=== PATIENT | female | born 1950 | race Caucasian/White ===

== ENCOUNTER 2018-07-20 21:20 | Inpatient (IN) | payer MEDICARE, BC ==
[~2018-07-20] VITALS: Ht 162.6 cm; Wt 58.5 kg
--- NOTE | 2018-07-20 21:34 | NUR ---
ED Nurse Note: FALL PRECAUTION AND ASPIRATION PRECAUTION STARTED PER ERMD ORDER.
--- NOTE | 2018-07-20 21:37 | NUR ---
ED Nurse Note: PT brought in by son from home c/o AMS, pt's son states a bystander at bank told son to take pt to hospital for "not herself." Pt A&ox1 at this time, no dysphagia or facial drooping noted, pt's son states pt is normally alert and has no hx dementia or other neurological problem except hx alcoholism. pt skin warm and dry, resp even and unlabored on RA, vss, will cont monitor. nsr on cardiac rn. ERMD at the bedside.
--- NOTE | 2018-07-20 21:37 | Emergency Room Report ---
History of Present Illness General Chief Complaint: Altered Level of Consciousness Source: Patient, Family Member Present Illness HPI This is a 68-year-old female with a history of high blood pressure but on her medication. She also has a history of alcohol abuse. She was brought in by her son for altered mental status with possible stroke. Last time he saw her normally was a week ago. 4 days ago he had a call from her banker saying that she was acting abnormal and wasn't making sense when she was talking. He thought that she may be drunk. He got a call from her today and on the phone she was not making sense. He rushed over and brought her here. Is a poor historian because her speech is very broken. It appeared that she said her symptoms started Thursday or Thursday morning. She has no focal deficit. She does have a history of frequent fall. No nausea no vomiting. No trauma. Allergies: Coded Allergies: No Known Allergies (Unverified , 07/20/18) Patient History Past Medical History: see triage record, old chart reviewed, HTN Past Surgical History: other Pertinent Family History: none Social History: Reports: smoking, alcohol use Now: No Immunizations: other Reviewed Nursing Documentation: PMH: Agreed; PSxH: Agreed Nursing Documentation-PMH Hx Hypertension: Yes Review of Systems Eye: Denies: eye pain, blurred vision ENT: Denies: ear pain, nose congestion, throat swelling Respiratory: Denies: cough, shortness of breath Cardiovascular: Denies: chest pain, palpitations Gastrointestinal: Denies: abdominal pain, diarrhea, nausea, vomiting Musculoskeletal: Denies: back pain, joint pain Skin: Denies: rash Neurological: Reports: other - Slurred speech; Denies: headache, numbness Endocrine: Denies: increased thirst, increased urine Hematologic/Lymphatic: Denies: easy bruising All Other Systems: negative except mentioned in HPI Physical Exam Vital Signs Date Time Temp Pulse Resp B/P (MAP) Pulse Ox O2 Delivery O2 Flow Rate FiO2 07/20/18 21:28 97.2 105 16 165/120 98 Room Air vitals with high blood pressure Sp02 EP Interpretation: reviewed, normal General Appearance: well appearing, no apparent distress, alert Head: normocephalic, atraumatic Eyes: bilateral eye PERRL, bilateral eye EOMI ENT: hearing grossly normal, normal pharynx Neck: full range of motion, supple, no meningismus Respiratory: chest non-tender, lungs clear, normal breath sounds Cardiovascular #1: regular rate, rhythm, no murmur Gastrointestinal: normal bowel sounds, non tender, no mass, no organomegaly, no bruit, non-distended Musculoskeletal: back normal, gait/station normal, normal range of motion Neurologic: alert, oriented x3, other - She had hard time getting her speech out. Speech is broken. Psychiatric: mood/affect normal Skin: warm/dry Medical Decision Making Diagnostic Impression: Primary Impression: CVA (cerebral vascular accident) Qualified Codes: I63.9 - Cerebral infarction, unspecified Additional Impressions: Hypertension Qualified Codes: I10 - Essential (primary) hypertension Alcohol abuse Acute hypokalemia ER Course Patient presents with dysarthria. CT shows CVA. This probably secondary to high blood pressure that's not control and noncompliance. There was questionable petechial hemorrhage in the region of the CVA. Because of this I held off aspirin. She is outside a of the time frame for TPA. She does not meet criteria. I discussed the case with Dr. Sandy who will admit. Lab Results Impression labs with hypokalemia EKG Diagnostic Results Rate: normal Rhythm: NSR ST Segments: other - PACs ASA given to the pt in ED: No Rhythm Strip Diag. Results EP Interpretation: yes Rate: 69 Rhythm: NSR, no PVC's, no ectopy Chest X-Ray Diagnostic Results Chest X-Ray Diagnostic Results : Chest X-Ray Ordered: Yes # of Views/Limited/Complete: 1 View Indication: Chest Pain EP Interpretation: Yes Interpretation: no consolidation, no effusion, no pneumothorax, no acute cardiopulmonary disease Impression: No acute disease Electronically Signed by: Cesario Stanley MD CT/MRI/US Diagnostic Results CT/MRI/US Diagnostic Results : Imaging Test Ordered: CT head Impression Read by radiologist. Hypoattenuation the left frontoparietal temporal region concerning for late acute or early subacute infarct. Question petechial hemorrhage in this region. Last Vital Signs Date Time Temp Pulse Resp B/P (MAP) Pulse Ox O2 Delivery O2 Flow Rate FiO2 07/20/18 21:28 97.2 105 16 165/120 98 Room Air Status: improved Disposition: ADMITTED INPATIENT Condition: Serious Cesario Stanley MD Jul 20, 2018 21:37
[2018-07-20 21:40] VITALS: BP 166/81
--- NOTE | 2018-07-20 21:48 | NUR ---
ED Nurse Note: PT OFF TO CT
--- NOTE | 2018-07-20 22:17 | NUR ---
ED Nurse Note: neuro check assessment done. noted pt with moderate level of aphasia, pt unable to repeat after words, pt aa&ox1, noted strength BUE +4 /BLE +5, no weakness noted at this time, will cont monitor.
[2018-07-20 22:25] LABS: BASOPHILS % (AUTO) 1.5 % (0.0-2.0); EOSINOPHILS % (AUTO) 2.6 % (0.0-3.0); HEMATOCRIT 44.7 % (37.0-47.0); HEMOGLOBIN 15.4 G/DL (12.0-16.0); LYMPHOCYTES % (AUTO) 29.6 % (20.0-45.0); MEAN CORPUSCULAR VOLUME 89 FL (80-99); NEUTROPHILS % (AUTO) 56.4 % (45.0-75.0); PLATELET COUNT 219 K/UL (150-450); RED BLOOD COUNT 5.05 M/UL (4.20-5.40); RED CELL DISTRIBUTION WIDTH 12.2 % (11.6-14.8)
[2018-07-20 22:35] LABS: ALANINE AMINOTRANSFERASE 52 U/L (12-78); ALBUMIN/GLOBULIN RATIO 0.9 (1.0-2.7); ALKALINE PHOSPHATASE 89 U/L (46-116); ANION GAP 13 mmol/L (5-15); ASPARTATE AMINO TRANSFERASE 70 U/L (15-37); BILIRUBIN,TOTAL 0.9 MG/DL (0.2-1.0); BLOOD UREA NITROGEN 12 mg/dL (7-18); CALCIUM 10.2 MG/DL (8.5-10.1); CARBON DIOXIDE 27 MMOL/L (21-32); CHLORIDE 99 MMOL/L (98-107); SODIUM 139 MMOL/L (136-145)
[2018-07-20 22:36] LABS: POTASSIUM 2.4 MMOL/L (3.5-5.1)
[2018-07-20 22:40] VITALS: BP 154/120
--- NOTE | 2018-07-20 23:40 | NUR ---
ED Nurse Note: PT TRANSFERRED TO TELE, CARE ENDORSED TO TERI MOY, ALL BELONGINGS SENT W/ PT, IV INTACT AND PATENT, RESP EVEN AND UNLABORED ON RA, NO CHANGES IN MENTAL STATUS NOR SPEECH PATTERN.
[2018-07-20 23:43] VITALS: BP 155/65
--- NOTE | 2018-07-20 23:43 | NUR ---
NURSE NOTES: Pt was brought in from ER with admitting diagnosis of CVA. Pt was received from Jaylyn WILLIAMSON from ED. Pt arrived on gurney with potline monitor on with no acute signs of respiratory or cardiac distress noted. Pt is saturating well (98%) on room air. Pt is alert and oriented times 1 as she is able to respond to her name. Pt eyes open spontaneously to name and is able to follow simple commands. Safety protocol initiated such as Bed is in lowest position, call light is within easy reach, side rails up times 2. bed alarm active. Received orders from MD Sandy. Will initiate plan of care.
[2018-07-21 04:00] VITALS: BP 128/67
[2018-07-21 05:19] LABS: BASOPHILS % (AUTO) 1.4 % (0.0-2.0); HEMATOCRIT 42.9 % (37.0-47.0); HEMOGLOBIN 14.4 G/DL (12.0-16.0); LYMPHOCYTES % (AUTO) 24.4 % (20.0-45.0); MEAN CORPUSCULAR VOLUME 90 FL (80-99); MONOCYTES % (AUTO) 10.6 % (1.0-10.0); NEUTROPHILS % (AUTO) 60.5 % (45.0-75.0); PLATELET COUNT 177 K/UL (150-450); RED BLOOD COUNT 4.79 M/UL (4.20-5.40); RED CELL DISTRIBUTION WIDTH 12.6 % (11.6-14.8); WHITE BLOOD COUNT 7.5 K/UL (4.8-10.8)
[2018-07-21 05:41] LABS: INR 1.1 (0.9-1.1)
[2018-07-21 05:51] LABS: ALANINE AMINOTRANSFERASE 48 U/L (12-78); ALBUMIN 3.4 G/DL (3.4-5.0); ALBUMIN/GLOBULIN RATIO 0.9 (1.0-2.7); ALKALINE PHOSPHATASE 70 U/L (46-116); ANION GAP 8 mmol/L (5-15); ASPARTATE AMINO TRANSFERASE 63 U/L (15-37); BILIRUBIN,TOTAL 0.9 MG/DL (0.2-1.0); BLOOD UREA NITROGEN 10 mg/dL (7-18); CALCIUM 9.5 MG/DL (8.5-10.1); CARBON DIOXIDE 28 MMOL/L (21-32); CHLORIDE 103 MMOL/L (98-107); CREATININE 0.8 MG/DL (0.55-1.30); POTASSIUM 2.9 MMOL/L (3.5-5.1); SODIUM 139 MMOL/L (136-145)
[2018-07-21 06:05] VITALS: BP 134/77
--- NOTE | 2018-07-21 06:18 | NUR ---
HAND-OFF: Report given to Cathy WILLIAMSON TELE.
--- NOTE | 2018-07-21 06:27 | NUR ---
NURSE NOTES: Left a message for MD Hill reporting Potassium 2.9. Awaiting further orders. will evelin out taqueria Morgan RN, receiving nurse.
--- NOTE | 2018-07-21 06:46 | NUR ---
NURSE NOTES: RECEIVED PATIENT FROM COMPA. PATIENT ALERT AND ORIENTED X1, SR ON A MONITOR. FALL AND ASPIRATION PRECAUTIONS IN PLACE: CALL LIGHT AND BEDSIDE TABLE WITHIN REACH, BED IN LOW POSITION AND BED ALARM ON; HOB ELEVATED 30 DEGREES. WILL CONTINUE WITH PLAN OF CARE.
--- NOTE | 2018-07-21 07:25 | NUR ---
HAND-OFF: Report given to Fabrice PEREZ RN PATIENT ASLEEP, NO SIGNS OF DISTRESS NOTED.
[2018-07-21 07:39] VITALS: BP 152/84
--- NOTE | 2018-07-21 08:45 | NUR ---
CASE MANAGEMENT:REVIEW 68 YR OLD FEMALE PRESENTED TO ER BY SON CC: ALOC SINCE THURSDAY SI: CVA. ACUTE HYPOKALEMIA. ETOH ABUSE 97.1 105 16 165/120 98% ON RA K-2.4 IS: IV KCL K-DUR 60MEQ PO 500CC NS BOLUS CT HEAD CHEST XRAY : TO TELEMETRY INTERQUAL CRITERIA MET
[2018-07-21] MEDS ORDERED: Sodium Chloride for KCL Premix X 4hrs IV SCH ×2 (09:30→10:00)
--- NOTE | 2018-07-21 09:48 | NUR ---
NURSE NOTES: pt awake alert, no distress. no sob. son at bedside. call light within reach. pt aware of pending swallow video. Dr Seth made aware via phone that re pt k level and pt npo and no ivf. Dr Sandy aware also
--- NOTE | 2018-07-21 10:27 | Diagnostic Imaging Report ---
Indications: Altered mental status Technique: Spiral acquisitions obtained through the brain. Angled axial and coronal 5 x 5 mm slices were reconstructed. Total dose length product 1369.05 mGycm. CTDI vol(s) 70.38 mGy. Dose reduction achieved using automated exposure control Comparison: None. Findings: There is an area of cytotoxic edema involving the left temporal lobe and parietal operculum. There is local mass effect manifested by effacement of the adjacent sulci. 8 equivocal slight peripheral hyperattenuation is probably just normal parenchyma outlined by the edematous parenchyma, but petechial hemorrhage not completely excludable. Old encephalomalacia is seen in the right occipital lobe. No acute intracranial hemorrhage. Normal size for age ventricles and extra axial CSF spaces. The remainder the murphy-white differentiation is normal. The calvarium is intact. There is right-sided mastoid opacification. The visualized orbits and sinuses are unremarkable Impression: Findings consistent with subacute left temporal and parietal infarct, in a left middle cerebral artery branch distribution. This results in mild local mass effect. Doubt but cannot exclude some petechial peripheral hemorrhage Old right occipital infarct Negative for acute intracranial bleed elsewhere Right mastoid disease This agrees with the preliminary interpretation provided overnight by [facility] teleradiology service. The CT scanner at [facility] is accredited by the [employer] and the scans are performed using protocols designed to limit radiation exposure to as low as reasonably achievable to attain images of sufficient resolution adequate for diagnostic evaluation.
--- NOTE | 2018-07-21 10:28 | Diagnostic Imaging Report ---
Indication: Chest pain Technique: One view of the chest Comparison: none Findings: The heart is upper limits normal size. The aorta is tortuous and calcified. The lungs and pleural spaces are clear Impression: No acute process
--- NOTE | 2018-07-21 11:12 | NUR ---
NURSE NOTES: rn called Dr Goodrich re neuro consult per md he will come by later in the day
[2018-07-21 12:00] VITALS: BP 142/77
--- NOTE | 2018-07-21 14:58 | NUR ---
ST NOTE: BEDSIDE SWALLOW EVAL RECEIVED BEDSIDE SWALLOW EVAL ORDER CHART REVIEWED PRIOR THE EVALUATION REFERRED BY , DR. PEMBERTON. PT IS A 68-YEAR-OLD FEMALE WHO WAS ADMITTED FOR ACUTE CVA. PER PT AND PT'S SON, PT'S SPEECH BEGAN HAVING SLURRED SPEECH AND INCREASED DIFFICULTY IN EXPRESSING HERSELF SINCE LAST THURSDAY. [id number] WAS NOTIFIED THAT PT WAS HAVING DIFFICULTY IN SPEECH AND HARD TO UNDERSTAND FROM THE BANKER. PER SON, CALLED PT LAST NIGHT AND WAS UNABLE TO UNDERSTAND PT AND BROUGHT PT IN THE ER FOR FURTHER ASSESSMENT. UPON ARRIVAL AT ER, PER ER MD, PT PRESENTS WITH DYSARTHRIA AND CT SHOWED CVA. CURRENTLY, NO CXR IS AVAILABLE AT THIS TIME. PER CT HEAD: Findings consistent with subacute left temporal and parietal infarct, in a left middle cerebral artery branch distribution. This results in mild local mass effect. Doubt but cannot exclude some petechial peripheral hemorrhage. Old right occipital infarct Negative for acute intracranial bleed elsewhere Right mastoid disease PER PT'S SON, PT HAS HISTORY OF ALCOHOL ABUSE(ABOUT 3 YEARS), AND PT HAD FREQUENT FALLS. PER SON, PT ALSO IS A SMOKER(?HOW MANY PER DAY AND HOW LONG) AND HAS A CHRONIC COUGH WHICH RELATED TO SMOKING. PT LIVES BY HERSELF INDEPENDENTLY; AND EATING REGULAR FOOD WITH THIN LIQUIDS WITHOUT SWALLOWING DIFFICULTY. CURRENT STATUS: PT SEEN AT BEDSIDE IN AM. ALERT, COOPERATIVE, ABLE TO FOLLOW DIRECTIONS. PT INCREASED DIFFICULTY IN EXPRESSING HERSELF(WORD-FINDING DIFFICULTY), AND IN PT'S SENTENCES, MISSING SUBJECT OR VERBS WAS ALSO NOTED. ORAL MOTOR EXAMINATION WAS COMPLETED PRIOR ANY PO TRIALS. MISSING SOME TEETH. FUNCTIONAL LABIAL MOVEMENT AND STRENGTH, WHEN ASKED PT TO MOVE HER TONGUE LATERALLY, PT WAS UNABLE TO COMPLETE THE TASK VOLUNTARILY, BUT ABLE TO MOVE ON THE BOTH SIDES INVOLUNTARILY, QUESTIONABLE IT RELATED TO ORAL APRAXIA OR RECEPTIVE LANGUAGE DEFICITS. WILL FOLLOW UP WITH SPEECH/LANGUAGE/COGNITION EVAL TO FULLY ASSESS PT'S SPEECH/LANGUAGE/COGNITIONS. ICE-CHIPS AND THIN LIQUID WERE ONLY GIVEN DURING THE PO INTAKE. WHEN PT TOOK THE BOLUS IN THE MOUTH, IT REQUIRED 3 TO 4 SECONDS ORAL TRANSIT TIME TO REACH THE HYOID BONE ELEVATING (LARYNGEAL ELEVATION), NO OVERT S/S OF ASPIRATION. HOWEVER, PT EXPRESSED THAT MODIFIED THE FOOD CONSISTENCIES IN LAST COUPLE DAYS. GIVEN PT HAS SUBACUTE/RECENT CVA, PT HAS RISK FOR SILENT ASPIRATION. RECOMMENDATIONS: 1. MODIFIED BARIUM SWALLOW STUDY TO OBJECTIVELY ASSESS PT'S SWALLOWING FUNCTION AND R/O SILENT ASPIRATION RISK. D/W PT, PT'S SON AND [id number] AND THE STAFF
[2018-07-21] MEDS ORDERED: Guaifenesin/DM 10ml syrup ORAL PRN (15:02)
--- NOTE | 2018-07-21 15:18 | NUR ---
ST NOTE: MODIFIED BARIUM SWALLOW STUDY(MBSS) COMPLETED MODIFIED BARIUM SWALLOW STUDY FULL REPORT WILL FOLLOW UNDER ST NOTE IN CARE ACTIVITY. RADIOLOGIST WAS NOTIFIED PRIOR THE MBSS. PT ALERT, COOPERATIVE, FOLLOWS DIRECTIONS; AND SITTING IN THE CHAIR IN THE UPRIGHT POSITION. ACCOMPANIED BY PT'S SON AND [id number]. GIVEN PO TRIALS: THIN(TSPX2 AND EQR-MLSU-[id number]-LARGE SIPS), NECTAR THICK(TSP/[id number]-NOLXSIUCZT-LARGE SIPS), PUDDING(TSP) AND 1/2 SALTINE CRACKER WITH 3CC PUDDING). IMPRESSION: DURING ORAL PHASE, THERE IS NO LABIAL ESCAPE WAS NOTED, GOOD LINGUAL CONTROL DURING BOLUS HOLD, SLOW BUT EFFICIENT MASTICATING AND MASHING DURING MASTICATED SOLID TRIAL. GOOD ORAL TRANSIT TIME(2 TO 3 SECONDS), TRACE ORAL RESIDUE BUT FUNCTIONAL. BOLUS HEADED AT THE BASE OF RAMUS OR VALLECULAE DURING INITIATING OF PHARYNGEAL SWALLOW. DURING PHARYNGEAL PHASE, POSSIBLE TRACE LARYNGEAL PENETRATION, ABOVE THE VOCAL FOLDS, WITH THIN DURING CUP SEQUENTIAL, BUT EJECTED SECONDARY TO LATE CLOSURE OF LARYNGEAL VESTIBULE. OTHERWISE, FUNCTIONAL LARYNGEAL ELEVATION, HYOID EXCURSION AND EPIGLOTTIC MOVEMENT. TRACE PHARYNGAL RESIDUE WITHIN PHARYNGEAL STRUCTURE(ARYEPIGLOTTIC FOLDS AND PYRIFORM SINUSES). ESOPHAGEAL PHASE SEEMS FUNCTIONAL, NO RETENTION WAS NOTED ON LATERAL VIEW AFTER ONE MINUTE. OVERALL, NO ASPIRATION WAS NOTED WITH ALL CONSISTENCIES; AND PT'S SWALLOWING IS FUNCTIONAL. RECOMMENDATIONS: 1. SLOWLY RESUME REGULAR WITH THIN LIQUIDS DIET. 2. GENERAL ASPIRATION PRECAUTIONS. 3. SPEECH/LANGUAGE/COGNITION EVAL AND TX. D/W PT AND FAMILY AND INFORMED ELMO WILLIAMSON.
--- NOTE | 2018-07-21 15:22 | Consultation ---
Consult Note Consult Note asked to eval at the request of Dr adams, BP and fluid and electrolyte management. This is a 68-year-old female with a history of high blood pressure but on her medication. She also has a history of alcohol abuse. She was brought in by her son for altered mental status with possible stroke. Last time he saw her normally was a week ago. 4 days ago he had a call from her banker saying that she was acting abnormal and wasn't making sense when she was talking. He thought that she may be drunk. He got a call from her today and on the phone she was not making sense. He rushed over and brought her here. Is a poor historian because her speech is very broken. It appeared that she said her symptoms started Thursday or Thursday morning. She has no focal deficit. She does have a history of frequent fall. No nausea no vomiting. No trauma. No Known Allergies (Unverified , 07/20/18) Hx Hypertension: Yes son present interviewed data reviewed claims to have had diarrhea !? Assessment/Plan Hypertension Alcohol abuse Acute hypokalemia CVA (cerebral vascular accident) CT Impression: Findings consistent with subacute left temporal and parietal infarct, in a left middle cerebral artery branch distribution. This results in mild local mass effect. Old right occipital infarct Negative for acute intracranial bleed elsewhere Right mastoid disease Plan: BP Meds Folic acid- Thiamine neuro eval K supplement UA per orders Olvin Seth MD Jul 21, 2018 15:22
[2018-07-21] MEDS: Thiamine HCl 100 MG in D5W 55 ML IVPB SCH (16:30)
[2018-07-21] MEDS: Docusate 100mg cap ORAL SCH (17:02)
[2018-07-21 18:03] VITALS: BP 160/88
[2018-07-21] MEDS ORDERED: Gadavist 7.5mMol/7.5ml vial IV PRN (18:45)
--- NOTE | 2018-07-21 19:13 | NUR ---
HAND-OFF: Report given to TERI ESPARZA.
--- NOTE | 2018-07-21 19:20 | NUR ---
NURSE NOTES: Reviewed new order from Nadja Goodrich MD. regarding stat order for MRI of neck with contrast. Called and left message
--- NOTE | 2018-07-21 19:25 | NUR ---
NURSE NOTES: NURSE NOTES: Received call back from Nadja Goodrich MD. New orders for Ativan 1mg IV X1 prior to procedure to be given.
--- NOTE | 2018-07-21 19:30 | NUR ---
NURSE NOTES: Called and spoke with Louis (Son) regarding consent for contrast administration. Obtained thru phone with Carrie Watson RN as 2nd Nurse to witness. Consent obtained.
--- NOTE | 2018-07-21 19:50 | NUR ---
NURSE NOTES: Spoke with patient regarding oncoming procedure, and Ativan administration prior. Patient refused to take medication and procedure. Explained risks and benefits but still refused. Will call MD for any further orders. ANAYELI, lamination technician from Radiology/CT aware of patients status, and is awaiting further orders.
[2018-07-21 20:00] VITALS: BP 164/88
--- NOTE | 2018-07-21 20:30 | NUR ---
NURSE NOTES: Spoke again with Louis (Son) regarding patients refusal to take medication and procedure to be done now. Stated that "I will call and talk to my mom, and ask whats going on". Will continue to monitor
--- NOTE | 2018-07-21 20:45 | NUR ---
NURSE NOTES: Spoke to Najda Goodrich RN. regarding patients refusal for both medication and procedure. New orders given to DC both MRI procedure and instead, replace with CTA neck and head (with contrast for both). Orders received and carried out. Son aware and notified. Will endorse to oncoming shift and will call Radiology dept in the morning to confirm. Continue plan of care.
[2018-07-21] MEDS ORDERED: LORazepam Inj 2mg/ml 1ml IV SCH (21:00)
[2018-07-21] MEDS ORDERED: Isovue-370 150ml vial INJ PRN ×2 (23:15)
[2018-07-22] VITALS: BP 161/91
[2018-07-22 04:00] VITALS: BP 175/86
--- NOTE | 2018-07-22 06:50 | NUR ---
NURSE NOTES: Spoke with Rubens from Radiology regarding CTA order. Will implement procedure after CT machines are in working condition.
--- NOTE | 2018-07-22 07:45 | NUR ---
NURSE NOTES: Received report from Mir WILLIAMSON. AO X2. Pt sitting in bed and eating breakfast. No c/o pain. No signs of distress noted. IV site L hand SL patent, intact. Urine sample bottle given to pt for the test. Bed in lowest position and locked. Neck CTA with contrast scheduled today and consent in the chart. Will continue to plan of care.
--- NOTE | 2018-07-22 07:45 | NUR ---
HAND-OFF: Report given to Rian Toledo RN. Patient in stable condition, endorsed plan of care.
[2018-07-22 08:00] VITALS: BP 155/90
[2018-07-22] MEDS ORDERED: HydrALAZINE 25mg tab ORAL PRN (09:00)
[2018-07-22] MEDS: Docusate 100mg cap ORAL SCH ×3 (09:31→17:41)
[2018-07-22] MEDS: Aspirin EC 325mg tab ORAL SCH (09:32)
[2018-07-22 09:37] LABS: BASOPHILS % (AUTO) 1.2 % (0.0-2.0); EOSINOPHILS % (AUTO) 2.3 % (0.0-3.0); HEMATOCRIT 45.1 % (37.0-47.0); HEMOGLOBIN 15.1 G/DL (12.0-16.0); LYMPHOCYTES % (AUTO) 18.9 % (20.0-45.0); MEAN CORPUSCULAR VOLUME 91 FL (80-99); MONOCYTES % (AUTO) 12.2 % (1.0-10.0); NEUTROPHILS % (AUTO) 65.3 % (45.0-75.0); PLATELET COUNT 203 K/UL (150-450); RED BLOOD COUNT 4.97 M/UL (4.20-5.40); RED CELL DISTRIBUTION WIDTH 12.5 % (11.6-14.8); WHITE BLOOD COUNT 7.9 K/UL (4.8-10.8)
[2018-07-22 10:17] LABS: ANION GAP 11 mmol/L (5-15); BLOOD UREA NITROGEN 8 mg/dL (7-18); CALCIUM 9.6 MG/DL (8.5-10.1); CARBON DIOXIDE 26 MMOL/L (21-32); CHLORIDE 102 MMOL/L (98-107); CREATININE 0.9 MG/DL (0.55-1.30); POTASSIUM 3.5 MMOL/L (3.5-5.1); SODIUM 139 MMOL/L (136-145)
[2018-07-22 10:30] LABS: ALANINE AMINOTRANSFERASE 54 U/L (12-78); ALBUMIN 3.5 G/DL (3.4-5.0); ALBUMIN/GLOBULIN RATIO 0.9 (1.0-2.7); ALKALINE PHOSPHATASE 76 U/L (46-116); ASPARTATE AMINO TRANSFERASE 69 U/L (15-37); BILIRUBIN,TOTAL 0.7 MG/DL (0.2-1.0); PHOSPHORUS 2.7 MG/DL (2.5-4.9)
--- NOTE | 2018-07-22 10:45 | History and Physical Report ---
DATE OF ADMISSION: 07/20/2018 HISTORY OF PRESENT ILLNESS: The patient admitted for CVA. It has been going on for three to four days, presented with focal aphasia, noncompliant with BP medications. CT showed subacute infarct in left frontal parietotemporal region and also admitted for hypokalemia. The patient has been having garbled speech for the past four to five days. She could not find words. According to her son, the patient has a fluency problem at this time. Also, has history of alcohol abuse and alcohol abuse is active according to her son. PAST MEDICAL HISTORY: Alcohol abuse, hypertension, and GERD. PAST SURGICAL HISTORY: Left ankle surgery and eye surgery. SOCIAL HISTORY: History of smoking. History of alcohol abuse. ALLERGIES: No known allergies. MEDICATIONS: Unable to tell the name of the medication she takes at this point. FAMILY HISTORY: She does have history of diabetes and hypertension in the family. REVIEW OF SYSTEMS: HEENT: Denies headaches. RESPIRATORY: Does have garbled, non-verbal speech for the four to five days. GASTROINTESTINAL: Denies nausea, vomiting, or diarrhea. CARDIOVASCULAR: Denies chest pain or orthopnea. EXTREMITIES: Denies any pain. CENTRAL NERVOUS SYSTEM: Does have change in the speech pattern for the past four to five days. Denies headache. Denies dizziness or syncope. PHYSICAL EXAMINATION: VITAL SIGNS: Temperature 98.2, pulse is 65, blood pressure 140/77. HEENT: PERRLA. NECK: Supple. No lymphadenopathy. CHEST: Clear to auscultation. CARDIOVASCULAR: Regular rate and rhythm. No murmurs or extra sounds. GASTROINTESTINAL: Soft, nontender, and nondistended. EXTREMITIES: Has 1+ edema. Reflexes equal in both sides. Does have non-verbal speech. NEUROLOGIC: No motor deficit. LABORATORY DATA: WBC of 11, hemoglobin 15.4, platelets 219. Sodium 139, potassium 2.4, BUN of 12, creatinine 1, and glucose 130. ASSESSMENT AND PLAN: Rule out acute . CAT scan shows subacute stroke and also severe low potassium, admitted for those reasons. We will consult Dr. Sen and Dr. Seth. The patient also PT, OT post stroke. Cosme Sandy M.D. DR: ANH JOB#: [id number] CC:
[2018-07-22 11:29] LABS: APPEARANCE,URINE SLIGHTLY CLOUDY; BILIRUBIN, URINE NEGATIVE (NEGATIVE); GLUCOSE, URINE (UA) NEGATIVE (NEGATIVE); KETONES,URINE NEGATIVE (NEGATIVE); LEUKOCYTE ESTERASE ,URINE 3+ (NEGATIVE); NITRITE,URINE POSITIVE (NEGATIVE); PH,URINE 7 (4.5-8.0); PROTEIN,URINE NEGATIVE (NEGATIVE); UROBILINOGEN,URINE NORMAL MG/DL (0.0-1.0)
[2018-07-22 11:30] LABS: COLOR,URINE YELLOW
[2018-07-22 12:00] VITALS: BP 142/76
--- NOTE | 2018-07-22 12:00 | Consultation ---
DATE OF CONSULTATION: CONSULTING PHYSICIAN: Higinio Goodrich M.D. This is probably the first [facility] admission for this 68-year-old right-handed white woman, chronic alcoholic, hypertension for years untreated, probable COPD, smoker for many years and continues to smoke, possibly with hyperlipidemia, who is admitted with a chief complaint of confusion or aphasia. HISTORY OF PRESENT ILLNESS: About 3 to 4 weeks ago, the patient apparently had trouble speaking for a few seconds and this however disappeared. The patient seen by her son about 4 days ago. She was in a bank and acting abnormally. The patient today got a phone call from her son and felt she was confused and then brought her to this hospital. EKG revealed left ventricular hypertrophy with repolarization abnormality. Cannot rule out septal infarct, age undetermined. There is sinus rhythm with premature atrial complexes noted. The patient's chest x-ray yesterday revealed the heart was in the upper limits of normal. She had a torturous and calcified aorta. However, the lungs were clear. The patient had a CT scan of the brain, which revealed a left frontal parietal operculum hypodensity involving the cortex as well as the subcortical white matter with local mass effect with effacement of the adjacent sulci, petechial hemorrhages, not completely excluded. There is also an old encephalomalacia seen in the right occipital lobe. There is some right mastoid opacification. The findings were consistent with subacute left temporoparietal infarct. Basal ganglia were not involved. The patient's chemistries yesterday revealed a low potassium of 2.4, glucose of 130, calcium 10.2, which was minimally elevated. Her AST was 70. Total protein was 8.3. Liver functions were normal. Today the potassium was 2.9. CBC was normal yesterday except for a white count of 11,000, which is now 7500, platelet count was 219,000. The PT and PTT and INR were normal. The patient was admitted with an acute stroke. The patient is placed on telemetry. She has actually improved . There is no history of chest pain or shortness of breath. Probably no history of palpitations. She has no visual changes. No diplopia. There is no loss of smell or taste, hearing loss or tinnitus or dizzy spell. There is no neck or back pain. There is no muscle weakness or gait disorder or numbness or tingling. She denies any headache or migraine. The patient did smoke at least 20 cigarettes a day for years. She denies any history of thyroid disease or cancer. She denies any history of heart disease including heart failure, myocardial infarctions. She has, however, had poor dentition but never goes to a dentist. She does not exercise and is obese. Her alcohol abuse started about 5 years ago. She did have alcohol withdrawal with tremor, but no delirium tremors and no seizures. No history of facial weakness, dysarthria, or dysphagia. There is no family history of neurologic disease. PAST MEDICAL HISTORY/PAST MEDICAL ILLNESSES: 1. Eczema. 2. Hypertension. 3. Hyperkalemia. SOCIAL HISTORY: She is and has 3 children in good health. ALLERGIES: There are no drug allergies. SURGERIES: In 1991, she shattered her left ankle and had a sean and pin placed. She had 2 regular pregnancies. MEDICATION: She is only on a steroid cream, but no medicines for hypertension. REVIEW OF SYSTEMS: Her appetite is good. Her weight is stable as far as we can tell. PHYSICAL EXAMINATION: GENERAL: She is a well-developed, obese woman, lying in bed, in no acute distress. VITAL SIGNS: Blood pressure is 166/88, pulse is 78 and regular, respiration is 19. HEENT: Examination of head, ears, eyes, nose, mouth and throat reveals poor dentition. NECK: Supple. There is no tenderness. Carotids are +2. No bruits could be appreciated. LUNGS: Clear to auscultation. CARDIOVASCULAR: PMI was not felt. JVP was flat. The patient had normal S1, S2 physiologically split. There was a questionable S4 at the apex and left sternal border. ABDOMEN: Obese. Bowel sounds are intact. There is no tenderness, masses, or organomegaly. BACK: There is no tenderness to percussion or muscle spasm. EXTREMITIES: Peripheral pulses are +2 in the upper and the dorsalis pedis pulses are felt in lower extremities. There is no edema or erythema. NEUROLOGIC: Mental status, she is alert and awake. She is oriented to person, knows her name. Her language function, her speech is nonfluent with paraphasic errors. Comprehension is impaired. Repetition is impaired. Reading and writing not tested. She had some right left confusion and finger agnosia and calculating 2+3, she is unable to score "5." CRANIAL NERVE EXAMINATION: CRANIAL NERVE II: Visual almonte are probably intact to confrontation. Fundi were not well visualized. CRANIAL NERVE III, IV, AND : Extraocular motility was full. Pupils are equal, round, reactive to light at 7 mm. CRANIAL NERVE V: Facial and corneal sensation were intact to fine touch and pinprick. Pterygoid strength 5/5. CRANIAL NERVE VII: Facial strength appeared to be symmetrical bilaterally. CRANIAL NERVE VIII: Auditory acuity is slightly decreased to loud whisper. CRANIAL NERVE IX AND X: Gag was intact bilaterally. CRANIAL NERVE XI: Sternocleidomastoid strength 5/5. CRANIAL NERVE XII: Tongue protrudes in the midline without fasciculations or atrophy. MUSCULOSKELETAL: Muscle bulk and tone are normal. Strength 5/5 proximally and distally without pronator drift. Reflexes are trace in the upper extremities, +1 at the knees and at the ankles with downgoing toes and testing for Babinski response. Coordination, bzfnzy-ld-iduc, ytfe-po-exob testing, rapid alternating movements were intact. She has a normal based gait. Romberg is negative. Tandem walking was done, heel and toe walk were decreased. Heel walk was a little worse than the toe walk. Sensory examination to pinprick and fine touch were grossly intact as well as proprioception. There was some decreased vibration at least to the ankles, probably a little higher at the shins. Vibration appeared to be normal in the DIP joint of the upper extremities. IMPRESSION: 1. This patient has evidence for paraphasia without hemiparesis. This is due to a stroke, usually it appears from a cardiac or aortic source rather than the middle cerebral artery stenosis or internal carotid artery. However, it sounds like she could have had a transient ischemic attack in the past, from an embolus? 2. The patient will need workup, to include MRA of the brain and neck using contrast in the neck only. 3. A 2D echocardiogram should be obtained. 4. C-reactive protein will be obtained. 5. I am going to start the patient on Plavix 75 mg. She will need to be on aspirin 325 mg. 6. She was at one time on alcohol withdrawal, but there is no evidence of withdrawal at this time. 7. I would not treat her blood pressure unless it goes up to 220/120. Her blood sugar should be less than 150. We will start treating the blood pressure tomorrow. Speech therapy should be obtained. She does not really need physical therapy. 8. she may need Coumadin and prolonged monitoring as an outpatient for atrial fibrillation. She already has some atrial arrhythmias on serial EKG, there was no left atrial enlargement noted on her 2D echocardiogram. PLAN: 1. Speech therapy. 2. MRA of the brain and neck, neck with contrast. 3. C-reactive protein. 4. Do not treat the blood pressure with medication unless it goes to 220/120. 5. Plavix 75 mg a day. 6. A 2D echocardiogram and possibly transesophageal echocardiogram. 7. I wonder if we can get emboli detection in this patient at this hospital. 8. I will speak to you about this case. Higinio Goodrich MD DR: Urbano JOB#: [id number] CC: TESHA
--- NOTE | 2018-07-22 12:43 | Diagnostic Imaging Report ---
APPROVED REPORT CPT Code: 66870 Present Symptoms Comments: BILATERAL LEGS PAIN. BILATERAL: Imaging reveals a patent deep venous system bilaterally. There is no evidence of thrombus within the common femoral, superficial femoral, popliteal or tibial segments. The greater saphenous veins are within normal limits. Doppler indicates normal spontaneous flow within these segments.
--- NOTE | 2018-07-22 15:16 | Nephrology Progress Note ---
Assessment/Plan Problem List: (1) Hypertension (2) CVA (cerebral vascular accident) (3) Alcohol abuse Assessment Hypertension Alcohol abuse Acute hypokalemia CVA (cerebral vascular accident) CT Impression: Findings consistent with subacute left temporal and parietal infarct, in a left middle cerebral artery branch distribution. This results in mild local mass effect. Old right occipital infarct Negative for acute intracranial bleed elsewhere Right mastoid disease Plan adjust BP meds mag IV today K PO Neuro eval noted Subjective ROS Limited/Unobtainable: No Constitutional: Reports: malaise Objective Objective Last 24 Hour Vital Signs Date Time Temp Pulse Resp B/P (MAP) Pulse Ox O2 Delivery O2 Flow Rate FiO2 07/22/18 12:00 97.2 72 20 142/76 (98) 98 07/22/18 09:31 71 155/90 07/22/18 09:00 Room Air 07/22/18 08:00 98.2 71 20 155/90 (111) 100 07/22/18 07:45 69 07/22/18 04:00 67 07/22/18 04:00 98.0 64 20 175/86 (115) 100 07/22/18 00:00 69 07/22/18 00:00 98.0 78 20 161/91 (114) 95 07/21/18 21:00 Room Air 07/21/18 20:00 98.0 76 20 164/88 (113) 94 07/21/18 20:00 97 07/21/18 18:03 98.2 70 18 160/88 (112) 97 07/21/18 15:58 83 07/21/18 15:45 65 142/77 Intake and Output 07/21/18 07/22/18 19:00 07:00 Intake Total 440 ml Balance 440 ml Intake Oral 240 ml IV Total 200 ml # Voids 3 # Bowel Movements 1 Laboratory Tests 07/22/18 09:00: White Blood Count 7.9, Red Blood Count 4.97, Hemoglobin 15.1, Hematocrit 45.1, Mean Corpuscular Volume 91, Mean Corpuscular Hemoglobin 30.4, Mean Corpuscular Hemoglobin Concent 33.6, Red Cell Distribution Width 12.5, Platelet Count 203, Mean Platelet Volume 7.5, Neutrophils (%) (Auto) 65.3, Lymphocytes (%) (Auto) 18.9L, Monocytes (%) (Auto) 12.2H, Eosinophils (%) (Auto) 2.3, Basophils (%) ( Auto) 1.2, Sodium Level 139, Potassium Level 3.5, Chloride Level 102, Carbon Dioxide Level 26, Anion Gap 11, Blood Urea Nitrogen 8, Creatinine 0.9, Estimat Glomerular Filtration Rate > 60, Glucose Level 154H, Hemoglobin A1c 5.5, Uric Acid 4.4, Calcium Level 9.6, Phosphorus Level 2.7, Magnesium Level 1.3L, Total Bilirubin 0.7, Aspartate Amino Transf (AST/SGOT) 69H, Alanine Aminotransferase ( ALT/SGPT) 54, Alkaline Phosphatase 76, Total Protein 7.6, Albumin 3.5, Globulin 4.1, Albumin/Globulin Ratio 0.9L, Vitamin B12 Level 393, Folate 18.6, Thyroid Stimulating Hormone (TSH) 3.113 07/22/18 11:20: Urine Color Yellow, Urine Appearance Slightly cloudy, Urine pH 7, Urine Specific [place] 1.005, Urine Protein Negative, Urine Glucose (UA) Negative, Urine Ketones Negative, Urine Blood 3+H, Urine Nitrite PositiveH, Urine Bilirubin Negative, Urine Urobilinogen Normal, Urine Leukocyte Esterase 3+H, Urine RBC 2-4H, Urine WBC 20-30H, Urine Squamous Epithelial Cells Occasional, Urine Bacteria ManyH Height (Feet): 5 Height (Inches): 4.00 Weight (Pounds): 129 General Appearance: no apparent distress Cardiovascular: normal rate Respiratory/Chest: decreased breath sounds Abdomen: soft Objective no change Olvin Seth MD Jul 22, 2018 15:16
[2018-07-22 16:00] VITALS: BP 131/63
--- NOTE | 2018-07-22 16:15 | NUR ---
ST NOTE: SWALLOW/SPEECH/LANGUAGE STATUS: PT SEEN AT BEDSIDE IN THE AFTERNOON. ALERT AND COOPERATIVE. PER PT'S [id number], PT TOLERATED REGULAR FOOD WITHOUT OVERT S/S OF ASPIRATION. OBSERVED PT WHEN DRINKING THIN LIQUIDS, NO S/S OF ASPIRATION WAS NOTED. SPEECH/LANGUAGE/COGNITION STATUS: PT PRESENTS WITH MODERATE APRAXIA OF SPEECH. BASED ON ORAL MOTOR EXAM, PT IS WITHIN FUNCTIONAL LIMITS. WHEN PT ENGAGED IN DIADOCHOKINETIC SYLLABLE TASK, PT WAS ABLE TO SAY /PA/, /TA/ AND /KA/ SLOWLY; WHEN PT ENGAGED IN SEQUENCING SYLLABLE TASK /PATAKA/ OR MULTISYLLABIC WORDS SUCH "BUTTERFLY", "DIFFICULT". INCONSISTENT SOUND PRODUCTIONS WERE NOTED, "BUTTER SI SI", "DI DO DA DA". PT WAS ABLE TO SAY PEN AND WATER INVOLUNTARILY. ENGAGED PT IN AUTOMATIC COUNTING FROM 1 TO 10, PT WAS ONLY ABLE TO SAY FROM 1 TO 3, PT INCREASED DIFFICULTY WITH THE SYLLABLE OF /f/ AND /s/. WILL ATTEMPT TO COMPLETE SPEECH/LANGUAGE/COGNITION EVAL CONTINUE SPEECH THERAPY WITH AUTOMATIC SPEECH(1TO5) AND SINGLE TO [id number]. D/W PT AND RN
[2018-07-22] MEDS: Thiamine HCl 100 MG in D5W 55 ML IVPB SCH (16:49)
--- NOTE | 2018-07-22 17:19 | Diagnostic Imaging Report ---
. Indication: Aphasia, altered mental status, evidence of subacute left-sided CVA on recent head CT scan Technique: Precontrast spiral acquisitions obtained through the brain. IV administration nonionic contrast arterial phase spiral acquisitions obtained through the head and neck. Delayed phase acquisitions obtained through the brain Multiplanar and 3-D reconstructions were generated. Total dose length product 4867.53 mGycm. CTDIvol(s) 70.38,49.76,70.38 mGy. Radiation dose was minimized using automated exposure control Comparison: 07/20/[address] Findings: Area of cytotoxic edema is again demonstrated in the left parietal operculum and anterior temporal lobe. The degree of mass effect appears slightly decreased from the previous exam. No associated hemorrhage. No new edema. Old right occipital encephalomalacia is again demonstrated. No acute bleed. No mass effect other than the local mass effect caused by the left-sided infarct. Cervical angiographic images demonstrate unremarkable aortic arch. Normal branching anatomy of the great neck vessels. Patent nonstenotic right brachiocephalic, common carotid and internal carotid arteries, although calcification in the carotid siphon precludes confident exclusion of significant stenosis at this level. Patent nonstenotic left common carotid artery and proximal internal carotid artery. There is narrowing of the distal internal carotid artery by at least 50% and up to 80%, compared to normal caliber distal internal carotid artery, at the level of the proximal carotid siphon. This appears to be a real finding. The proximal right subclavian artery is patent without evidence of significant stenosis. The vertebral arteries are codominant, right vertebral artery is patent. It demonstrates some atherosclerotic plaque as it enters the foramen magnum but this does not result in any significant narrowing. The left proximal subclavian artery and left vertebral artery are likewise patent without evidence of significant focal stenosis. Intracranial angiographic images demonstrate patency of the bilateral PICA is. There is focal narrowing of the mid basilar artery of around 50% diameter. Patent bilateral superior cerebellar arteries. Patent bilateral P1 segments and proximal branches. As mentioned above, there is narrowing of the internal carotid artery at the level of the proximal siphon. It is widely patent distal to this. Small caliber but patent left A1 segment is demonstrated. This feeds a diffusely small caliber A2. Patent nonstenotic M1. The anterior division M1 trunk is patent. However, posterior division M2 trunk is not well identified. Irregular ill-defined vessels are seen in this area, and there is filling of very small caliber sylvian branches. The postcontrast images of the brain demonstrate equivocal slight peripheral enhancement at the edges of the infarct. No other unusual enhancement demonstrated. The cervical soft tissues demonstrate normal orbits. There is bilateral maxillary sinus disease. No cervical mass or adenopathy. There is equivocal slight nodularity to the anterior right vocal cord. There is a subcentimeter upper pole thyroid nodule on the left. The included lung apices are grossly clear. Impression: High-grade stenosis versus occlusion of the left M2 posterior trunk, with evidence of diminished filling of the sylvian vessels distally. This is likely related to the subacute infarct seen in this territory 50-80% diameter stenosis of the left internal carotid artery at the level of the proximal carotid siphon. Diffusely small caliber left anterior cerebral artery. Uncertain as to whether this is congenital, acquired, or due to diminished inflow Borderline significant focal stenosis of the mid basilar artery No evidence of significant extracranial cerebral vascular insufficiency Subacute left temporal and parietal opercular infarct, also previously described, nonhemorrhagic. Very slight peripheral enhancement on the delayed phase images may indicate early so-called luxury perfusion Questionable slight nodularity to the anterior right vocal cord. Direct inspection recommended Subcentimeter upper pole left thyroid nodule, no further follow-up necessary Findings reported to patient's nurse at the time of interpretation The CT scanner at [facility] is accredited by the [employer] and the scans are performed using protocols designed to limit radiation exposure to as low as reasonably achievable to attain images of sufficient resolution adequate for diagnostic evaluation.
--- NOTE | 2018-07-22 17:30 | NUR ---
NURSE NOTES: Dr. Goodrich(NEURO) came and notified abnormal finding of NECK/HEAD CTA.
--- NOTE | 2018-07-22 18:03 | Cardiology Report ---
APPROVED REPORT EKG Measurement Heart [id number] Sinus rhythm with premature atrial complexes Left ventricular hypertrophy with repolarization abnormality Cannot rule out Septal infarct, age undetermined Abnormal ECG
--- NOTE | 2018-07-22 19:07 | NUR ---
HAND-OFF: Report given to Mir RN. Pt remains stable.
--- NOTE | 2018-07-22 19:10 | NUR ---
NURSE NOTES: Received report from Rian Toledo RN. Patient in bed with family at bedside with no complaints of acute pain or discomfort at this time and also Kept clean, dry, and comfortable in bed. IV line intact and patent SL and tolerating RA with no S/S of resp distress at this time 02 saturation at 95-97%. Placed on continuous cardiac monitoring per protocol. Safety precaution in place; siderails X3 up, call light within reach, bed in lowest position, brakes and alarm on at all times. needs and wants anticipated and attended. Will continue plan of care and monitor for any changes noted. CTA procedure resulted. Nadja Goodrich MD aware. NNO
[2018-07-22 20:00] VITALS: BP 159/77
--- NOTE | 2018-07-22 21:51 | General Progress Note ---
Assessment/Plan Problem List: (1) Alcohol abuse ICD Codes: F10.10 - Alcohol abuse, uncomplicated SNOMED: 55794871 (2) Hypertension ICD Codes: I10 - Essential (primary) hypertension SNOMED: 72784043 Qualifiers: Qualified Codes: I10 - Essential (primary) hypertension (3) Acute hypokalemia ICD Codes: E87.6 - Hypokalemia SNOMED: 84335515 (4) CVA (cerebral vascular accident) ICD Codes: I63.9 - Cerebral infarction, unspecified SNOMED: 903497156 Qualifiers: Qualified Codes: I63.9 - Cerebral infarction, unspecified Status: stable Assessment/Plan mumbled speech afebrile htn noncompliant needs snf for close moniter and vitals pt/ot Subjective ROS Limited/Unobtainable: Yes Allergies: Coded Allergies: No Known Allergies (Unverified , 07/20/18) Objective Last 24 Hour Vital Signs Date Time Temp Pulse Resp B/P (MAP) Pulse Ox O2 Delivery O2 Flow Rate FiO2 07/22/18 17:41 76 131/63 07/22/18 16:00 76 07/22/18 16:00 97.0 90 20 131/63 (85) 98 07/22/18 12:00 97.2 72 20 142/76 (98) 98 07/22/18 11:56 64 07/22/18 09:31 71 155/90 07/22/18 09:00 Room Air 07/22/18 08:00 98.2 71 20 155/90 (111) 100 07/22/18 07:45 69 07/22/18 04:00 67 07/22/18 04:00 98.0 64 20 175/86 (115) 100 07/22/18 00:00 69 07/22/18 00:00 98.0 78 20 161/91 (114) 95 Intake and Output 07/21/18 07/22/18 19:00 07:00 Intake Total 440 ml Balance 440 ml Intake Oral 240 ml IV Total 200 ml # Voids 3 # Bowel Movements 1 Laboratory Tests 07/22/18 09:00: White Blood Count 7.9, Red Blood Count 4.97, Hemoglobin 15.1, Hematocrit 45.1, Mean Corpuscular Volume 91, Mean Corpuscular Hemoglobin 30.4, Mean Corpuscular Hemoglobin Concent 33.6, Red Cell Distribution Width 12.5, Platelet Count 203, Mean Platelet Volume 7.5, Neutrophils (%) (Auto) 65.3, Lymphocytes (%) (Auto) 18.9L, Monocytes (%) (Auto) 12.2H, Eosinophils (%) (Auto) 2.3, Basophils (%) ( Auto) 1.2, Sodium Level 139, Potassium Level 3.5, Chloride Level 102, Carbon Dioxide Level 26, Anion Gap 11, Blood Urea Nitrogen 8, Creatinine 0.9, Estimat Glomerular Filtration Rate > 60, Glucose Level 154H, Hemoglobin A1c 5.5, Uric Acid 4.4, Calcium Level 9.6, Phosphorus Level 2.7, Magnesium Level 1.3L, Total Bilirubin 0.7, Aspartate Amino Transf (AST/SGOT) 69H, Alanine Aminotransferase ( ALT/SGPT) 54, Alkaline Phosphatase 76, Total Protein 7.6, Albumin 3.5, Globulin 4.1, Albumin/Globulin Ratio 0.9L, Vitamin B12 Level 393, Folate 18.6, Thyroid Stimulating Hormone (TSH) 3.113 07/22/18 11:20: Urine Color Yellow, Urine Appearance Slightly cloudy, Urine pH 7, Urine Specific [place] 1.005, Urine Protein Negative, Urine Glucose (UA) Negative, Urine Ketones Negative, Urine Blood 3+H, Urine Nitrite PositiveH, Urine Bilirubin Negative, Urine Urobilinogen Normal, Urine Leukocyte Esterase 3+H, Urine RBC 2-4H, Urine WBC 20-30H, Urine Squamous Epithelial Cells Occasional, Urine Bacteria ManyH Height (Feet): 5 Height (Inches): 4.00 Weight (Pounds): 129 Cardiovascular: normal rate Respiratory/Chest: lungs clear Abdomen: soft Cosme Sandy MD Jul 22, 2018 21:51
[2018-07-23] VITALS: BP 145/72
--- NOTE | 2018-07-23 03:30 | Progress Note ---
DATE: 07/22/2018 NEUROLOGIC PROGRESS NOTE: SUBJECTIVE: The patient was doing fine. She had her CT angiograms today showing abnormal narrowing of the M2 arteries on the left side. She also has abnormal CT angiogram of her neck, which the left internal carotid artery is between 50 and 80% stenosis at the level of the proximal carotid siphon. The left anterior cerebral artery is small. She has borderline significant focal stenosis of the basilar artery. The patient did have her speech therapy today. PHYSICAL EXAMINATION: VITAL SIGNS: The temperature is 97 degrees, pulse 76 and regular, blood pressure 131/63, respiratory rate is 20. NEUROLOGIC: MENTAL STATUS: Language functions, the comprehension is better today than yesterday. She still cannot repeat. She still has some right left confusion; however, she did add 2+3 and got 4, yesterday was 5 + 3 equals 8. The patient's speech is nonfluent with paraphasic errors. She could follow commands. She had finger agnosia as well. CRANIAL NERVE EXAMINATION: CRANIAL NERVES II: Visual almonte intact to confrontation. CRANIAL NERVE III, IV, AND : Extraocular motility was full. Pupils are equal, round, light reactive at about 6.5 to 7 mm. CRANIAL NERVE V: Facial and corneal sensation intact to fine touch. CRANIAL NERVE VII: Facial strength is 5/5. CRANIAL NERVE VIII: Auditory acuity is not changed. CRANIAL NERVE IX AND X: Gag is decreased. CRANIAL NERVE XI: Sternocleidomastoid strength is 5/5. CRANIAL NERVE XII: Tongue protrudes in the midline without fasciculations or atrophy. MUSCLE EXAMINATION: Muscle bulk and tone are normal. Strength is 5/5 proximally and distally. REFLEXES: +1 in the right upper extremity, +1 in the knee, 0 ankles. Toes are downgoing bilaterally. COORDINATION: Mfxijj-[id number] is grossly intact. Losa-wr-[id number] testing is grossly intact. GAIT AND STATION: Not tested. LABORATORY DATA: CBC was basically normal. The chemistries are normal except for glucose of 164, AST of 69, magnesium 1.3. B12, folic acid, TSH were all normal although the B12 was low normal at 393. Potassium is normal. Urinalysis reveals 20 to 30 wbc's, many bacteria, +3 urine blood, +3 leukocyte esterase, all compatible with a urinary tract infection. IMPRESSION: The patient has 50 to 80% stenosis its probably the origin of her stroke. She also has a urinary tract infection, which can also be a risk factor for stroke. Right now, I would keep her on her aspirin and Plavix. Her urinary tract infection has to be treated. PLAN: 1. Continue speech therapy. 2. Treat the UTI. 3. I will follow this patient with you. Higinio Goodrich MD DR: KIKO JOB#: [id number] CC: TESHA
[2018-07-23 04:00] VITALS: BP 138/83
--- NOTE | 2018-07-23 04:40 | NUR ---
NURSE NOTES: Patient asleep in bed with no S/S of distress at this time. Will continue to monitor
--- NOTE | 2018-07-23 07:27 | NUR ---
HAND-OFF: Report given to Nadja Jameson RN. Patient in bed in stable condition. Endorsed plan of care.
[2018-07-23 08:00] VITALS: BP 139/106
[2018-07-23] MEDS: Aspirin EC 325mg tab ORAL SCH (08:46)
[2018-07-23] MEDS: Docusate 100mg cap ORAL SCH ×3 (08:46→17:22)
[2018-07-23 12:00] VITALS: BP 150/88
--- NOTE | 2018-07-23 13:13 | NUR ---
CASE MANAGEMENT:REVIEW 07/23/18 SI: ALCOHOL ABUSE. HTN. CVA 97.8 86 20 139/106 95% ON RA IS; K-DUR PO QD FOLATE PO QD PLAVIX PO QD ASA PO QD NORVASC PO BID : TELEMETRY DCP: FROM HOME
--- NOTE | 2018-07-23 14:52 | NUR ---
RD ASSESSMENT & RECOMMENDATIONS SEE CARE ACTIVITY FOR COMPLETE ASSESSMENT DAILY ESTIMATED NEEDS: Needs based on cardiac, 67kg abw 25-30 kcals/kg total kcals 1-1.3 g protein/kg 67-87 g total protein 25-30 mL/kg total fluid mLs NUTRITION DIAGNOSIS: Decreased sodium intake needs R/T CVA as evidenced by subacute infarct in left frontal parietotemporal region per CT scan. CURRENT DIET:REGULAR PO DIET RECOMMENDATIONS: LOW NA/ texture per DOCK ATTENDANT ADDITIONAL RECOMMENDATIONS: * Calibrated bedscale wt for accurate CBW * Monitor lytes, replete as needed (low mag 1.3)
--- NOTE | 2018-07-23 14:52 | NUR ---
ST NOTE: SWALLOW/SPEECH/LANGUAGE STATUS PT TOLERATED WELL WITH CURRENT DIET, NO ASPIRATION WAS NOTED. WILL D/C FROM SKILLED ST SERVICE FOR DYSPHAGIA TREATMENT. SPEECH/LANGUAGE/COGNITION STATUS: SPOKE TO PT'S [id number] RE:PT'S CONDITIONS AND PT'S SPEECH STATUS. EXPLAINED TO [id number]-DNS THAT PT IS DIAGNOSED WITH APRAXIA OF SPEECH AND WORDING-FINDING DIFFICULTY. PT PRESENTS WITH GROUPING, INCONSISTENT ERROR WITH SPEECH PRODUCTION. PT IS ABLE TO COUNT 1 TO 10 WITH 80 % ACCURACY. PT IS PRACTISING ALPHABET FROM A TO Z. CONTINUE SKILLED ST SERVICE RE: SPEECH/LANGUAGE EVAL AND TX.
[2018-07-23 16:00] VITALS: BP 135/78
--- NOTE | 2018-07-23 17:31 | Nephrology Progress Note ---
Assessment/Plan Problem List: (1) Hypertension (2) CVA (cerebral vascular accident) (3) Alcohol abuse Assessment Hypertension Alcohol abuse Acute hypokalemia CVA (cerebral vascular accident) CT Impression: Findings consistent with subacute left temporal and parietal infarct, in a left middle cerebral artery branch distribution. This results in mild local mass effect. Old right occipital infarct Negative for acute intracranial bleed elsewhere Right mastoid disease Plan adjust BP meds mag IV today K PO Neuro eval noted Subjective ROS Limited/Unobtainable: No Objective Objective Last 24 Hour Vital Signs Date Time Temp Pulse Resp B/P (MAP) Pulse Ox O2 Delivery O2 Flow Rate FiO2 07/23/18 17:23 66 141/71 07/23/18 12:00 69 07/23/18 12:00 97.7 66 19 150/88 (108) 96 07/23/18 09:00 Room Air 07/23/18 08:47 86 139/106 07/23/18 08:00 90 07/23/18 08:00 97.8 86 20 139/106 (117) 95 07/23/18 04:00 74 07/23/18 04:00 98.2 69 20 138/83 (101) 95 07/23/18 00:00 70 07/23/18 00:00 97.9 69 20 145/72 (96) 99 07/22/18 21:00 Room Air 07/22/18 20:00 97.8 65 20 159/77 (104) 95 07/22/18 20:00 84 07/22/18 17:41 76 131/63 Intake and Output 07/22/18 07/23/18 19:00 07:00 Intake Total 356 ml Balance 356 ml Intake Oral 100 ml IV Total 256 ml # Voids 1 3 Height (Feet): 5 Height (Inches): 4.00 Weight (Pounds): 129 General Appearance: other - energetic ! Neck: supple Cardiovascular: normal rate Respiratory/Chest: decreased breath sounds Abdomen: soft Neurologic: other - dysphasic Objective no change Olvin Seth MD Jul 23, 2018 17:31
[2018-07-23] MEDS: Thiamine HCl 100 MG in D5W 55 ML IVPB SCH (17:56)
--- NOTE | 2018-07-23 19:30 | NUR ---
NURSE NOTES: Received pt. and report from, TERI Nunez. Observe pt. resting in bed with both eyes open. site director is in placed, IV site intact, asymptomatic and patent. Bed is in the lowest position and locked. Call light within reach. No signs and symptoms of acute distress noted at this time. Will continue plan of care.
[2018-07-23 20:00] VITALS: BP 156/87
--- NOTE | 2018-07-23 21:21 | General Progress Note ---
Assessment/Plan Problem List: (1) Alcohol abuse ICD Codes: F10.10 - Alcohol abuse, uncomplicated SNOMED: 28320295 (2) Hypertension ICD Codes: I10 - Essential (primary) hypertension SNOMED: 65040242 Qualifiers: Qualified Codes: I10 - Essential (primary) hypertension (3) Acute hypokalemia ICD Codes: E87.6 - Hypokalemia SNOMED: 53761883 (4) CVA (cerebral vascular accident) ICD Codes: I63.9 - Cerebral infarction, unspecified SNOMED: 649652358 Qualifiers: Qualified Codes: I63.9 - Cerebral infarction, unspecified Status: progressing Assessment/Plan mumbled speech uti.consulted id htn noncompliant needs snf f subacute cva Subjective Allergies: Coded Allergies: No Known Allergies (Unverified , 07/20/18) Objective Last 24 Hour Vital Signs Date Time Temp Pulse Resp B/P (MAP) Pulse Ox O2 Delivery O2 Flow Rate FiO2 07/23/18 17:23 66 141/71 07/23/18 16:00 83 07/23/18 16:00 97.6 79 20 135/78 (97) 97 07/23/18 12:00 69 07/23/18 12:00 97.7 66 19 150/88 (108) 96 07/23/18 09:00 Room Air 07/23/18 08:47 86 139/106 07/23/18 08:00 90 07/23/18 08:00 97.8 86 20 139/106 (117) 95 07/23/18 04:00 74 07/23/18 04:00 98.2 69 20 138/83 (101) 95 07/23/18 00:00 70 07/23/18 00:00 97.9 69 20 145/72 (96) 99 Intake and Output 07/22/18 07/23/18 19:00 07:00 Intake Total 356 ml Balance 356 ml Intake Oral 100 ml IV Total 256 ml # Voids 1 3 Height (Feet): 5 Height (Inches): 4.00 Weight (Pounds): 129 Cardiovascular: normal rate Respiratory/Chest: lungs clear Abdomen: soft Cosme Sandy MD Jul 23, 2018 21:21
[2018-07-24] VITALS: BP 146/77
--- NOTE | 2018-07-24 00:15 | Progress Note ---
DATE: 07/23/2018 SUBJECTIVE: The patient is about the same as yesterday. There is no headache. No new weakness, numbness, or tingling, or change in her language disorder. The patient's blood pressure is now under better control, but still elevated. PHYSICAL EXAMINATION: VITAL SIGNS: The blood pressure is 141/71, pulse is 66 and regular, respiration is 19, and temperature is 97.7 degrees. NEUROLOGICAL: Mental status, she is alert and awake. The patient is still aphasic with a nonfluent paraphasic language disorder with impaired comprehension, impaired repetition, impair in right and left recursion, in the right and left confusion, and finger agnosia. She could not add 3+2 or 9+2 or in fact 2+2 giving 4. She could not do one step commands above midline and raising her right arm to command and left arm to command. CRANIAL NERVE EXAMINATION: CRANIAL NERVE II: Visual almonte intact to confrontation. CRANIAL NERVES III, IV, AND : Extraocular motility was full. Pupils were both running up to 6 mm, round, and reactive. CRANIAL NERVE V: Facial and corneal sensation was intact to fine touch. Pterygoid strength is 5/5. CRANIAL NERVE VII: Facial strength is 5/5 bilaterally. CRANIAL NERVE VIII: She has decreased auditory acuity in both ears. The right side worse than the left. CRANIAL NERVES IX AND X: Gag is decreased bilaterally. CRANIAL NERVE XI: Sternocleidomastoid strength is 5/5. CRANIAL NERVE XII: Tongue protrudes in the midline without fasciculations or atrophy. MUSCULOSKELETAL: Muscle bulk and tone are normal. Strength is 5/5 proximally and distally in all muscle groups. Reflexes are unchanged. Coordination, [id number] and ptuq-bh-[id number] testing are intact. Gait and station not tested. Sensory examination not tested. IMPRESSION: The patient is basically the same. She will need to see the vascular surgeon as an outpatient or a neurosurgeon regarding later activity of stent. She also needs her urinary tract infection to be treated. She should continue her Plavix and aspirin as prescribed. PLAN: As above. Higinio Goodrich MD DR: Urbano JOB#: [id number] CC:
[2018-07-24 04:00] VITALS: BP 135/85
--- NOTE | 2018-07-24 07:25 | NUR ---
NURSE NOTES: Received report from Stephanie/RN. Patient is awake eating breakfast, Bed in low position, Call light in within reach. Will continue plan of care.
--- NOTE | 2018-07-24 07:45 | NUR ---
HAND-OFF: Report given to TERI Valerio.
[2018-07-24 08:00] VITALS: BP 149/97
[2018-07-24] MEDS: Aspirin EC 325mg tab ORAL SCH (08:25)
[2018-07-24] MEDS: Docusate 100mg cap ORAL SCH ×3 (08:25→18:29)
[2018-07-24 09:29] LABS: BASOPHILS % (AUTO) 1.4 % (0.0-2.0); EOSINOPHILS % (AUTO) 3.2 % (0.0-3.0); HEMATOCRIT 42.2 % (37.0-47.0); HEMOGLOBIN 14.2 G/DL (12.0-16.0); LYMPHOCYTES % (AUTO) 23.8 % (20.0-45.0); MEAN CORPUSCULAR VOLUME 92 FL (80-99); MONOCYTES % (AUTO) 12.6 % (1.0-10.0); NEUTROPHILS % (AUTO) 58.9 % (45.0-75.0); PLATELET COUNT 202 K/UL (150-450); RED BLOOD COUNT 4.58 M/UL (4.20-5.40); RED CELL DISTRIBUTION WIDTH 12.6 % (11.6-14.8); WHITE BLOOD COUNT 7.4 K/UL (4.8-10.8)
[2018-07-24 09:37] LABS: ALANINE AMINOTRANSFERASE 48 U/L (12-78); ALBUMIN 3.3 G/DL (3.4-5.0); ALBUMIN/GLOBULIN RATIO 0.8 (1.0-2.7); ALKALINE PHOSPHATASE 78 U/L (46-116); ANION GAP 9 mmol/L (5-15); ASPARTATE AMINO TRANSFERASE 51 U/L (15-37); BILIRUBIN,TOTAL 0.4 MG/DL (0.2-1.0); BLOOD UREA NITROGEN 10 mg/dL (7-18); CALCIUM 9.2 MG/DL (8.5-10.1); CARBON DIOXIDE 26 MMOL/L (21-32); CHLORIDE 103 MMOL/L (98-107); CHOLESTEROL 162 MG/DL (< 200); CREATININE 1.2 MG/DL (0.55-1.30); HDL CHOLESTEROL 58 MG/DL (40-60); POTASSIUM 3.9 MMOL/L (3.5-5.1); SODIUM 138 MMOL/L (136-145); TRIGLYCERIDES 80 MG/DL (30-150)
--- NOTE | 2018-07-24 11:44 | NUR ---
PT Note Patient is independent in all mobility an gait without any AD. No skilled PT services recommended at this time. Recommend continued ST treatments to improve speech.
--- NOTE | 2018-07-24 13:22 | NUR ---
NURSE NOTES: Patient's son wants a phone call from Dr. Goodrich, If there is anything new. His name is Louis
[2018-07-24] MEDS ORDERED: Amoxicillin 250mg/5ml susp 150ml GT SCH (15:00)
[2018-07-24 16:00] VITALS: BP 135/81
--- NOTE | 2018-07-24 16:21 | Nephrology Progress Note ---
Assessment/Plan Problem List: (1) Hypertension Assessment: OOC (2) CVA (cerebral vascular accident) (3) Alcohol abuse Assessment Hypertension Alcohol abuse Acute hypokalemia CVA (cerebral vascular accident) CT Impression: Findings consistent with subacute left temporal and parietal infarct, in a left middle cerebral artery branch distribution. This results in mild local mass effect. Old right occipital infarct Negative for acute intracranial bleed elsewhere Right mastoid disease Plan adjust BP meds mag IV today K PO Neuro eval noted Subjective ROS Limited/Unobtainable: No Objective Objective Last 24 Hour Vital Signs Date Time Temp Pulse Resp B/P (MAP) Pulse Ox O2 Delivery O2 Flow Rate FiO2 07/24/18 09:00 Room Air 07/24/18 08:25 67 149/97 07/24/18 08:00 71 07/24/18 08:00 97.8 67 18 149/97 (114) 98 07/24/18 04:00 98.4 70 18 135/85 (102) 97 07/24/18 04:00 68 07/24/18 00:00 97.8 68 18 146/77 (100) 98 07/24/18 00:00 63 07/23/18 21:00 Room Air 07/23/18 20:00 97.9 68 18 156/87 (110) 97 07/23/18 20:00 68 07/23/18 17:23 66 141/71 Intake and Output 07/23/18 07/24/18 19:00 07:00 Intake Total 260 ml Balance 260 ml Intake Oral 260 ml # Voids 5 3 Laboratory Tests 07/24/18 08:50: White Blood Count 7.4, Red Blood Count 4.58, Hemoglobin 14.2, Hematocrit 42.2, Mean Corpuscular Volume 92, Mean Corpuscular Hemoglobin 31.1H, Mean Corpuscular Hemoglobin Concent 33.8, Red Cell Distribution Width 12.6, Platelet Count 202, Mean Platelet Volume 7.0, Neutrophils (%) (Auto) 58.9, Lymphocytes (%) (Auto) 23.8, Monocytes (%) (Auto) 12.6H, Eosinophils (%) (Auto) 3.2H, Basophils (%) ( Auto) 1.4, Sodium Level 138, Potassium Level 3.9, Chloride Level 103, Carbon Dioxide Level 26, Anion Gap 9, Blood Urea Nitrogen 10, Creatinine 1.2, Estimat Glomerular Filtration Rate 44.4, Glucose Level 176H, Calcium Level 9.2, Magnesium Level 1.6L, Total Bilirubin 0.4, Aspartate Amino Transf (AST/SGOT) 51H , Alanine Aminotransferase (ALT/SGPT) 48, Alkaline Phosphatase 78, Total Protein 7.4, Albumin 3.3L, Globulin 4.1, Albumin/Globulin Ratio 0.8L, Triglycerides Level 80, Cholesterol Level 162, LDL Cholesterol 84, HDL Cholesterol 58, Cholesterol/HDL Ratio 2.8L Height (Feet): 5 Height (Inches): 4.00 Weight (Pounds): 129 General Appearance: no apparent distress Cardiovascular: normal rate Respiratory/Chest: decreased breath sounds Abdomen: soft Neurologic: other - dysphasic Objective no change Olvin Seth MD Jul 24, 2018 16:21
[2018-07-24] MEDS: Thiamine HCl 100 MG in D5W 55 ML IVPB SCH (18:29)
--- NOTE | 2018-07-24 19:20 | NUR ---
HAND-OFF: Report given to Andrew/TERI, Patient is in stable condition. Endorsed plan of care.
--- NOTE | 2018-07-24 19:21 | NUR ---
NURSE NOTES: Got report from Iman RN. Pt in stable condition. Denies any pain. No s/s of distress or discomfort noted. Pt resting in bed comfortably. Bed in low and locked position, call light within reach, bedside table within reach. Continue to monitor.
[2018-07-24 20:00] VITALS: BP 130/90
[2018-07-24] MEDS ORDERED: NS 275ml ONE (20:38)
[2018-07-24] MEDS ORDERED: Tubing IV Secondary IV ONE (20:38)
--- NOTE | 2018-07-24 21:19 | General Progress Note ---
Assessment/Plan Problem List: (1) Alcohol abuse ICD Codes: F10.10 - Alcohol abuse, uncomplicated SNOMED: 36330702 (2) Hypertension ICD Codes: I10 - Essential (primary) hypertension SNOMED: 51785041 Qualifiers: Qualified Codes: I10 - Essential (primary) hypertension (3) Acute hypokalemia ICD Codes: E87.6 - Hypokalemia SNOMED: 38040020 (4) CVA (cerebral vascular accident) ICD Codes: I63.9 - Cerebral infarction, unspecified SNOMED: 035534154 Qualifiers: Qualified Codes: I63.9 - Cerebral infarction, unspecified Status: progressing Assessment/Plan still mumbled speech uti is better abx per id htn subacute cva Subjective ROS Limited/Unobtainable: Yes Allergies: Coded Allergies: No Known Allergies (Unverified , 07/20/18) Objective Last 24 Hour Vital Signs Date Time Temp Pulse Resp B/P (MAP) Pulse Ox O2 Delivery O2 Flow Rate FiO2 07/24/18 18:31 61 135/81 07/24/18 16:00 97.6 61 20 135/81 (99) 96 07/24/18 16:00 61 07/24/18 12:00 69 07/24/18 09:00 Room Air 07/24/18 08:25 67 149/97 07/24/18 08:00 71 07/24/18 08:00 97.8 67 18 149/97 (114) 98 07/24/18 04:00 98.4 70 18 135/85 (102) 97 07/24/18 04:00 68 07/24/18 00:00 97.8 68 18 146/77 (100) 98 07/24/18 00:00 63 Intake and Output 07/23/18 07/24/18 19:00 07:00 Intake Total 260 ml Balance 260 ml Intake Oral 260 ml # Voids 5 3 Laboratory Tests 07/24/18 08:50: White Blood Count 7.4, Red Blood Count 4.58, Hemoglobin 14.2, Hematocrit 42.2, Mean Corpuscular Volume 92, Mean Corpuscular Hemoglobin 31.1H, Mean Corpuscular Hemoglobin Concent 33.8, Red Cell Distribution Width 12.6, Platelet Count 202, Mean Platelet Volume 7.0, Neutrophils (%) (Auto) 58.9, Lymphocytes (%) (Auto) 23.8, Monocytes (%) (Auto) 12.6H, Eosinophils (%) (Auto) 3.2H, Basophils (%) ( Auto) 1.4, Sodium Level 138, Potassium Level 3.9, Chloride Level 103, Carbon Dioxide Level 26, Anion Gap 9, Blood Urea Nitrogen 10, Creatinine 1.2, Estimat Glomerular Filtration Rate 44.4, Glucose Level 176H, Calcium Level 9.2, Magnesium Level 1.6L, Total Bilirubin 0.4, Aspartate Amino Transf (AST/SGOT) 51H , Alanine Aminotransferase (ALT/SGPT) 48, Alkaline Phosphatase 78, Total Protein 7.4, Albumin 3.3L, Globulin 4.1, Albumin/Globulin Ratio 0.8L, Triglycerides Level 80, Cholesterol Level 162, LDL Cholesterol 84, HDL Cholesterol 58, Cholesterol/HDL Ratio 2.8L Height (Feet): 5 Height (Inches): 4.00 Weight (Pounds): 129 Neck: supple Cardiovascular: normal rate Respiratory/Chest: lungs clear Abdomen: soft Cosme Sandy MD Jul 24, 2018 21:19
[2018-07-24] MEDS: Amoxicillin 250mg/5ml susp 150ml ORAL SCH (21:36)
[2018-07-25] VITALS (7 sets, daily range): BP systolic 131–170; BP diastolic 60–95
[2018-07-25] MEDS: Amoxicillin 250mg/5ml susp 150ml ORAL SCH ×3 (06:14→21:30)
--- NOTE | 2018-07-25 07:05 | NUR ---
HAND-OFF: Report given to Iman RN. Endorsed plan of care.
--- NOTE | 2018-07-25 07:10 | NUR ---
NURSE NOTES: Received report from Andrew/RN, Patient is awake, alert x4. No sign of distress/SOB noted at this time. Call light within reach, Bed in low position, Will continue plan of care.
[2018-07-25] MEDS: Aspirin EC 325mg tab ORAL SCH (08:33)
[2018-07-25] MEDS: Docusate 100mg cap ORAL SCH ×3 (08:33→18:22)
--- NOTE | 2018-07-25 11:16 | Nephrology Progress Note ---
Assessment/Plan Problem List: (1) Hypertension Assessment: OOC (2) CVA (cerebral vascular accident) (3) Alcohol abuse Assessment Hypertension Alcohol abuse Acute hypokalemia CVA (cerebral vascular accident) CT Impression: Findings consistent with subacute left temporal and parietal infarct, in a left middle cerebral artery branch distribution. This results in mild local mass effect. Old right occipital infarct Negative for acute intracranial bleed elsewhere Right mastoid disease Plan adjust BP meds mag IV today K PO Neuro eval noted Subjective ROS Limited/Unobtainable: No Constitutional: Reports: malaise Objective Objective Last 24 Hour Vital Signs Date Time Temp Pulse Resp B/P (MAP) Pulse Ox O2 Delivery O2 Flow Rate FiO2 07/25/18 09:00 Room Air 07/25/18 08:34 77 158/84 07/25/18 08:00 75 07/25/18 08:00 97.8 77 21 158/84 (108) 95 07/25/18 04:20 98.0 74 20 131/60 (83) 95 07/25/18 04:20 73 07/25/18 00:07 72 07/25/18 00:00 97.0 88 20 136/90 (105) 95 07/24/18 21:00 Room Air 07/24/18 20:00 97.1 75 20 130/90 (103) 95 07/24/18 20:00 83 07/24/18 18:31 61 135/81 07/24/18 16:00 97.6 61 20 135/81 (99) 96 07/24/18 16:00 61 07/24/18 12:00 69 Intake and Output 07/24/18 07/25/18 18:59 06:59 Intake Total 360 ml Balance 360 ml Intake Oral 360 ml # Voids 1 3 Height (Feet): 5 Height (Inches): 4.00 Weight (Pounds): 129 General Appearance: no apparent distress Objective no change Olvin Seth MD Jul 25, 2018 11:16
--- NOTE | 2018-07-25 15:56 | Consultation ---
History of Present Illness General Chief Complaint: Altered Level of Consciousness Present Illness Allergies: Coded Allergies: No Known Allergies (Unverified , 07/20/18) Patient History Healthcare decision maker Resuscitation status Full Code Advanced Directive on File No Physical Exam Last 24 Hour Vital Signs Date Time Temp Pulse Resp B/P (MAP) Pulse Ox O2 Delivery O2 Flow Rate FiO2 07/25/18 12:00 97.2 66 22 136/84 (101) 93 07/25/18 12:00 77 07/25/18 09:00 Room Air 07/25/18 08:34 77 158/84 07/25/18 08:00 75 07/25/18 08:00 97.8 77 21 158/84 (108) 95 07/25/18 04:20 98.0 74 20 131/60 (83) 95 07/25/18 04:20 73 07/25/18 00:07 72 07/25/18 00:00 97.0 88 20 136/90 (105) 95 07/24/18 21:00 Room Air 07/24/18 20:00 97.1 75 20 130/90 (103) 95 07/24/18 20:00 83 07/24/18 18:31 61 135/81 07/24/18 16:00 97.6 61 20 135/81 (99) 96 07/24/18 16:00 61 Intake and Output 07/24/18 07/25/18 19:00 07:00 Intake Total 360 ml Balance 360 ml Intake Oral 360 ml # Voids 1 3 Height (Feet): 5 Height (Inches): 4.00 Weight (Pounds): 129 Medications Current Medications Medications (Trade) Dose Ordered Sig/Eduardo Route PRN Reason Start Time Stop Time Status Last Admin Dose Admin Amlodipine Besylate (Norvasc) 5 mg BID ORAL 07/22/18 09:00 08/20/18 15:29 07/25/18 08:34 Amoxicillin (Amoxil) 500 mg Q8HR ORAL 07/24/18 22:00 07/31/18 21:59 07/25/18 13:13 Aspirin (Ecotrin) 325 mg DAILY ORAL 07/22/18 09:00 08/21/18 08:59 07/25/18 08:33 Clopidogrel Bisulfate (Plavix) 75 mg DAILY ORAL 07/22/18 09:00 08/21/18 08:59 07/25/18 08:34 Docusate Sodium (Colace) 100 mg THREE TIMES A DAY ORAL 07/21/18 18:00 08/20/18 17:59 07/25/18 13:13 Folic Acid (Folate) 1 mg DAILY ORAL 07/22/18 09:00 08/21/18 08:59 07/25/18 08:33 Guaifenesin/ Dextromethorphan (Robitussin DM Syrup) 5 ml Q4H PRN ORAL For Cough 07/21/18 15:02 08/20/18 15:01 07/21/18 15:45 Hydralazine HCl (Apresoline) 25 mg Q4H PRN ORAL bp over 160 syst 07/22/18 09:00 08/21/18 08:59 Pantoprazole (Protonix) 40 mg EVERY 12 HOURS ORAL 07/21/18 21:00 08/20/18 20:59 07/25/18 08:34 Potassium Chloride (K-Dur) 40 meq DAILY ORAL 07/22/18 09:00 08/21/18 08:59 07/25/18 08:33 Thiamine HCl 100 mg/Dextrose 56 ml @ 112 mls/hr Q24H IVPB 07/21/18 16:30 08/20/18 16:29 07/24/18 18:29 Assessment/Plan Assessment/Plan Hematology Consultation Note REQ MD: Vika Aguiar RFC: Hyperproteinemia evaluation DOS: 07/25/18 Chief Complaint: Altered Level of Consciousness ID 68-year-old female with a history of high blood pressure but on her medication. She also has a history of alcohol abuse. She was brought in by her son for altered mental status with possible stroke. Last time he saw her normally was a week ago. 4 days ago he had a call from her banker saying that she was acting abnormal and wasn't making sense when she was talking. He thought that she may be drunk. He got a call from her today and on the phone she was not making sense. He rushed over and brought her here. Is a poor historian because her speech is very broken. It appeared that she said her symptoms started Thursday or Thursday morning. She has no focal deficit. She does have a history of frequent fall. No nausea no vomiting. No trauma. On imaging has a subacute cva, but noticed to have an elevated protein, hypercalcemia and heme was consulted at this time. Coded Allergies: No Known Allergies (Unverified , 07/20/18) Past Medical History: see triage record, old chart reviewed, HTN Past Surgical History: other Pertinent Family History: none Social History: Reports: smoking, alcohol use Now: No Immunizations: other Reviewed Nursing Documentation: PMH: Agreed; PSxH: Agreed Hx Hypertension: Yes ROS Eye: Denies: eye pain, blurred vision ENT: Denies: ear pain, nose congestion, throat swelling Respiratory: Denies: cough, shortness of breath Cardiovascular: Denies: chest pain, palpitations Gastrointestinal: Denies: abdominal pain, diarrhea, nausea, vomiting Musculoskeletal: Denies: back pain, joint pain Skin: Denies: rash Neurological: Reports: other - Slurred speech; Denies: headache, numbness Endocrine: Denies: increased thirst, increased urine Hematologic/Lymphatic: Denies: easy bruising All Other Systems: negative except mentioned in HPI PE Vital Signs Date Time Temp Pulse Resp B/P (MAP) Pulse Ox O2 Delivery O2 Flow Rate FiO2 07/25/18 12:28 97.2 105 16 165/120 98 Room Air vitals with high blood pressure Sp02 EP Interpretation: reviewed, normal General Appearance: well appearing, no apparent distress, alert Head: normocephalic, atraumatic Eyes: bilateral eye PERRL, bilateral eye EOMI ENT: hearing grossly normal, normal pharynx Neck: full range of motion, supple, no meningismus Respiratory: chest non-tender, lungs clear Cardiovascular: regular rate, rhythm, no murmur Gastrointestinal: normal bowel sounds, non tender Musculoskeletal: back normal, gait/station normal Neurologic: alert, oriented x3, other Psychiatric: mood/affect normal Skin: warm/dry Labs: have been reviewed Imaging: also noted, no major changes Assessment and Recs: # Hyperproteinemia, elevated at >8, decreased albumin slightly, r/o neoplastic process though is less likely --> have ordered for spep, can f/u as outpatient # HYpercalemia, elevated on admission, r/o hyperparathyroidism --> have ordered for pth level --> depending on above, consider meds if Ca++ gets worse --> current Ca++ improving # CVA (cerebral vascular accident) --> on asa and plavix given 2ndary hypercoag state # Hypertension --> sbp goal <140 --> as per cards # Alcohol abuse # Acute hypokalemia --> as per renal The timing of this note does not necessarily reflect the time of the patient was seen. Greatly appreciate consultation! Jason Ludwig MD Jul 25, 2018 15:56
[2018-07-25] MEDS: Thiamine HCl 100 MG in D5W 55 ML IVPB SCH (16:07)
--- NOTE | 2018-07-25 16:15 | Consultation ---
DATE OF CONSULTATION: 07/25/2018 INFECTIOUS DISEASES CONSULTATION CONSULTING PHYSICIAN: Jerry Kelly M.D. PRIMARY ATTENDING PHYSICIAN: Cosme Sandy M.D. REASON FOR CONSULTATION: UTI. HISTORY OF PRESENT ILLNESS: The patient is a 68-year-old white female admitted on 07/20/2018 with altered mental status, difficulty of speaking with impression of acute stroke. CT scan of the head showed left temporal and parietal infarcts. The patient has a urine culture that became positive for E. coli. PAST MEDICAL HISTORY: Significant for hypertension, COPD, alcohol abuse. PAST SURGICAL HISTORY: She had a left ankle fracture and surgery in 1991. ALLERGIES: No known drug allergies. MEDICATIONS: Amoxicillin that started yesterday, potassium chloride, folic acid, Plavix, aspirin, amlodipine, hydralazine, Protonix, thiamine, sodium chloride, Robitussin. SOCIAL HISTORY: Single. Smoker 10 cigarettes a day. She has history of alcohol abuse but stopped it. REVIEW OF SYSTEMS: Denies fever, chills, nausea, vomiting, coughing. She has known urinary symptoms. She is ambulatory, but cannot speak normally. PHYSICAL EXAMINATION: VITAL SIGNS: Temperature 97.2, pulse 66, blood pressure 136/84. GENERAL APPEARANCE: No acute distress. Awake, alert, responsive. HEAD AND NECK: Dazey conjunctivae. Poor dentition. HEART: S1 and S2 regular . LUNGS: Clear. ABDOMEN: Soft and nontender. EXTREMITIES: No edema, has finger clubbing. NEUROLOGIC: Slight decrease in hearing bilaterally, difficulty expressing the words and search for the words, otherwise ambulatory and no focal weakness. LABORATORY AND DIAGNOSTIC DATA: WBC 7.4, at the time of admission was 11, hemoglobin 14.2, hematocrit 42.2, platelet 202. Sodium 138, potassium 3.9, potassium at the time of admission was 2.4, chloride 103, bicarbonate 26, BUN 10, creatinine 1.2, glucose 176, magnesium 1.6, AST 51. CT scan of the head showed old right occipital infarct subacute, left temporal and parietal infarct in the left middle cerebral artery branch distribution. Head CT angiogram high-grade stenosis versus occlusion of left M2 posterior branch , 50 to 80% stenosis of the left internal carotid artery at the level of the proximal carotid siphon. Urine culture grew E coli, sensitive to antibiotic imipenem. IMPRESSION: Asymptomatic bacteriuria versus UTI with E. coli, may benefit short-term of antibiotic. The patient has acute left temporal and subacute left temporal and parietal CVA, internal carotid stenosis, COPD, hypertension, nicotine dependence. RECOMMENDATION: Continue amoxicillin for a few days. Case was discussed with primary doctor. At the end of my exam, I thank Dr. Sandy, for involving me in the care of this patient. Jerry Kelly M.D. DR: Oniel JOB#: [id number] CC: [email or web address]
--- NOTE | 2018-07-25 19:36 | NUR ---
HAND-OFF: Report given to Andrew /TERI. Patient is in stable condition, Endorsed plan of care.
--- NOTE | 2018-07-25 21:37 | General Progress Note ---
Assessment/Plan Problem List: (1) Alcohol abuse ICD Codes: F10.10 - Alcohol abuse, uncomplicated SNOMED: 64765468 (2) Hypertension ICD Codes: I10 - Essential (primary) hypertension SNOMED: 50234790 Qualifiers: Qualified Codes: I10 - Essential (primary) hypertension (3) Acute hypokalemia ICD Codes: E87.6 - Hypokalemia SNOMED: 29377951 (4) CVA (cerebral vascular accident) ICD Codes: I63.9 - Cerebral infarction, unspecified SNOMED: 065255498 Qualifiers: Qualified Codes: I63.9 - Cerebral infarction, unspecified Status: progressing Assessment/Plan still mumbled speech uti is better abx per id htn subacute cva needs snf for pt /ot and speech s/p cva Subjective ROS Limited/Unobtainable: Yes Allergies: Coded Allergies: No Known Allergies (Unverified , 07/20/18) Objective Last 24 Hour Vital Signs Date Time Temp Pulse Resp B/P (MAP) Pulse Ox O2 Delivery O2 Flow Rate FiO2 07/25/18 20:21 170/89 07/25/18 18:22 75 149/95 07/25/18 16:00 75 07/25/18 16:00 97.2 86 22 149/95 (113) 94 07/25/18 12:00 97.2 66 22 136/84 (101) 93 07/25/18 12:00 77 07/25/18 09:00 Room Air 07/25/18 08:34 77 158/84 07/25/18 08:00 75 07/25/18 08:00 97.8 77 21 158/84 (108) 95 07/25/18 04:20 98.0 74 20 131/60 (83) 95 07/25/18 04:20 73 07/25/18 00:07 72 07/25/18 00:00 97.0 88 20 136/90 (105) 95 Intake and Output 07/24/18 07/25/18 19:00 07:00 Intake Total 360 ml Balance 360 ml Intake Oral 360 ml # Voids 1 3 Laboratory Tests 07/25/18 16:30: Calcium (Send out) [Pending], Total Protein (PEP) [Pending], Albumin (PEP) [ Pending], Globulin (PEP) [Pending], Albumin/Globulin Ratio [Pending], Alpha-1- Globulins [Pending], Mfame-4-Djaotlxbm [Pending], Beta Globulins [Pending], Beta Gamma Globulin [Pending], PEP Abnormal Protein Bands [Pending], Protein Electrophoresis Interpret [Pending], Parathyroid Hormone (Intact) [Pending] Height (Feet): 5 Height (Inches): 4.00 Weight (Pounds): 129 Neck: supple Cardiovascular: normal rate Respiratory/Chest: lungs clear Cosme Sandy MD Jul 25, 2018 21:37
[2018-07-26 00:07] VITALS: BP 139/71
[2018-07-26 04:11] VITALS: BP 144/79
[2018-07-26] MEDS: Amoxicillin 250mg/5ml susp 150ml ORAL SCH (05:30)
--- NOTE | 2018-07-26 07:15 | NUR ---
HAND-OFF: Report given to Renita WILLIAMSON. Endorsed plan of care.
--- NOTE | 2018-07-26 07:48 | NUR ---
NURSE NOTES: Received report from Merced Lancaster. pt is sitting up in bed having coffee. Pts IV is not working. Bed is in lowest position, side rails up X2, and call light is within reach. Will continue to monitor.
[2018-07-26 08:08] VITALS: BP 140/91
[2018-07-26] MEDS: Docusate 100mg cap ORAL SCH (08:16)
[2018-07-26] MEDS: Aspirin EC 325mg tab ORAL SCH (08:16)
[2018-07-26 08:17] VITALS: BP 140/91
--- NOTE | 2018-07-26 10:06 | Infectious Diseases Prog Note ---
Assessment/Plan Assessment/Plan IMPRESSION: Asymptomatic bacteriuria versus UTI with E. coli, acute left temporal and subacute left temporal and parietal CVA, internal carotid stenosis, COPD, hypertension, nicotine dependence. RECOMMENDATION: Continue amoxicillin for 1 day Subjective ROS Limited/Unobtainable: No Constitutional: Reports: no symptoms Respiratory: Reports: no symptoms Cardiovascular: Reports: no symptoms Gastrointestinal/Abdominal: Reports: no symptoms Genitourinary: Reports: no symptoms Neurologic: Reports: other - difficulty of speaking Allergies: Coded Allergies: No Known Allergies (Unverified , 07/20/18) Objective Vital Signs Last 24 Hour Vital Signs Date Time Temp Pulse Resp B/P (MAP) Pulse Ox O2 Delivery O2 Flow Rate FiO2 07/26/18 08:17 72 140/91 07/26/18 08:08 97.7 72 16 140/91 (107) 98 07/26/18 04:20 58 07/26/18 04:11 97.8 71 18 144/79 (100) 96 07/26/18 00:07 98.0 65 18 139/71 (93) 95 07/26/18 00:07 60 07/25/18 21:00 Room Air 07/25/18 21:00 155/85 (108) 07/25/18 20:21 170/89 07/25/18 20:00 97.0 72 20 170/89 (116) 98 07/25/18 20:00 69 07/25/18 18:22 75 149/95 07/25/18 16:00 75 07/25/18 16:00 97.2 86 22 149/95 (113) 94 07/25/18 12:00 97.2 66 22 136/84 (101) 93 07/25/18 12:00 77 Height (Feet): 5 Height (Inches): 4.00 Weight (Pounds): 129 General Appearance: no acute distress HEENT: mucous membranes moist Respiratory/Chest: decreased breath sounds Cardiovascular: normal rate Abdomen: soft, non tender Extremities: no edema Neurologic/Psychiatric: alert, responsive, other - decreased hearing, paraphasia Laboratory Tests Test 07/25/18 16:30 Calcium (Send out) Pending Total Protein (PEP) Pending Albumin (PEP) Pending Globulin (PEP) Pending Albumin/Globulin Ratio Pending Rkbhk-2-Qmwxghkwq Pending Xkgqr-1-Wqhdkebev Pending Beta Globulins Pending Beta Gamma Globulin Pending PEP Abnormal Protein Bands Pending Protein Electrophoresis Interpret Pending Parathyroid Hormone (Intact) Pending Current Medications Medications (Trade) Dose Ordered Sig/Eduardo Route PRN Reason Start Time Stop Time Status Last Admin Dose Admin Amlodipine Besylate (Norvasc) 5 mg BID ORAL 07/22/18 09:00 08/20/18 15:29 07/26/18 08:17 Amoxicillin (Amoxil) 500 mg Q8HR ORAL 07/24/18 22:00 07/31/18 21:59 07/26/18 05:30 Aspirin (Ecotrin) 325 mg DAILY ORAL 07/22/18 09:00 08/21/18 08:59 07/26/18 08:16 Clopidogrel Bisulfate (Plavix) 75 mg DAILY ORAL 07/22/18 09:00 08/21/18 08:59 07/26/18 08:17 Docusate Sodium (Colace) 100 mg THREE TIMES A DAY ORAL 07/21/18 18:00 08/20/18 17:59 07/26/18 08:16 Folic Acid (Folate) 1 mg DAILY ORAL 07/22/18 09:00 08/21/18 08:59 07/26/18 08:16 Guaifenesin/ Dextromethorphan (Robitussin DM Syrup) 5 ml Q4H PRN ORAL For Cough 07/21/18 15:02 08/20/18 15:01 07/21/18 15:45 Hydralazine HCl (Apresoline) 25 mg Q4H PRN ORAL bp over 160 syst 07/22/18 09:00 08/21/18 08:59 07/25/18 20:21 Pantoprazole (Protonix) 40 mg EVERY 12 HOURS ORAL 07/21/18 21:00 08/20/18 20:59 07/26/18 08:17 Potassium Chloride (K-Dur) 40 meq DAILY ORAL 07/22/18 09:00 08/21/18 08:59 07/26/18 08:16 Thiamine HCl 100 mg/Dextrose 56 ml @ 112 mls/hr Q24H IVPB 07/21/18 16:30 08/20/18 16:29 07/25/18 16:07 Jerry Kelly MD Jul 26, 2018 10:06
--- NOTE | 2018-07-26 10:19 | NUR ---
DISCHARGE PLANNING DISCHARGE ORDER NOTED FAXED [facility] T: [phone] AWAITING ACCEPTANCE AND ASSIGNED ROOM NUMBER
--- NOTE | 2018-07-26 12:00 | NUR ---
DISCHARGE PLAN PATIENT HAS BEEN ACCEPTED TO [facility] ROOM [address] SKILLED T: [phone] FOR NURSE TO NURSE REPORT [facility] HAS BEEN ARRANGED FOR [address] [employer] EXECUTIVE SPOKE WITH SON, ELLIS, AND HE IS IN AGREEMENT WITH DISCHARGE PLAN
[2018-07-26] MEDS ORDERED: ASPIRIN EC325 MG ORAL (12:27)
[2018-07-26] MEDS ORDERED: FOLIC ACID1 MG ORAL (12:28)
[2018-07-26] MEDS ORDERED: PLAVIX75 MG ORAL (12:28)
[2018-07-26] MEDS ORDERED: DOCUSATE SODIU100 MG ORAL (12:28)
[2018-07-26] MEDS ORDERED: GUAIFENESIN DM118 M1 ORAL (12:30)
[2018-07-26] MEDS ORDERED: HYDRALAZINE HCL25 M1 ORAL (12:31)
[2018-07-26] MEDS ORDERED: PANTOPRAZOLE SO40 MG ORAL (12:31)
[2018-07-26] MEDS ORDERED: POTASSIUM CHLO20 ME3 PO (12:32)
[2018-07-26] MEDS ORDERED: AMLODIPINE BESYL5 MG ORAL (12:33)
[2018-07-26] MEDS ORDERED: ROCEPHIN250 MG IVPB (12:34)
--- NOTE | 2018-07-26 12:40 | Nephrology Progress Note ---
Assessment/Plan Problem List: (1) Hypertension Assessment: OOC (2) CVA (cerebral vascular accident) (3) Alcohol abuse Assessment Hypertension Alcohol abuse Acute hypokalemia CVA (cerebral vascular accident) CT Impression: Findings consistent with subacute left temporal and parietal infarct, in a left middle cerebral artery branch distribution. This results in mild local mass effect. Old right occipital infarct Negative for acute intracranial bleed elsewhere Right mastoid disease Plan adjust BP meds mag IV today K PO as needed Neuro eval noted to med surg? Subjective ROS Limited/Unobtainable: No Constitutional: Reports: malaise, weakness Objective Objective Last 24 Hour Vital Signs Date Time Temp Pulse Resp B/P (MAP) Pulse Ox O2 Delivery O2 Flow Rate FiO2 07/26/18 09:00 Room Air 07/26/18 08:17 72 140/91 07/26/18 08:08 97.7 72 16 140/91 (107) 98 07/26/18 04:20 58 07/26/18 04:11 97.8 71 18 144/79 (100) 96 07/26/18 00:07 98.0 65 18 139/71 (93) 95 07/26/18 00:07 60 07/25/18 21:00 Room Air 07/25/18 21:00 155/85 (108) 07/25/18 20:21 170/89 07/25/18 20:00 97.0 72 20 170/89 (116) 98 07/25/18 20:00 69 07/25/18 18:22 75 149/95 07/25/18 16:00 75 07/25/18 16:00 97.2 86 22 149/95 (113) 94 Intake and Output 07/25/18 07/26/18 19:00 07:00 Intake Total 370 ml Balance 370 ml Intake Oral 360 ml IV Total 10 ml # Voids 3 4 # Bowel Movements 1 Laboratory Tests 07/25/18 16:30: Calcium (Send out) [Pending], Total Protein (PEP) [Pending], Albumin (PEP) [ Pending], Globulin (PEP) [Pending], Albumin/Globulin Ratio [Pending], Alpha-1- Globulins [Pending], Tyqbw-6-Urrzlurue [Pending], Beta Globulins [Pending], Beta Gamma Globulin [Pending], PEP Abnormal Protein Bands [Pending], Protein Electrophoresis Interpret [Pending], Parathyroid Hormone (Intact) [Pending] Height (Feet): 5 Height (Inches): 4.00 Weight (Pounds): 129 General Appearance: no apparent distress Cardiovascular: normal rate Respiratory/Chest: decreased breath sounds Abdomen: soft Objective no change Olvin Seth MD Jul 26, 2018 12:40
--- NOTE | 2018-07-26 12:49 | NUR ---
NURSE NOTES: Called [facility]. Gave report to Merced Jolley. She will be admitting the patient. ETA is 2pm
--- NOTE | 2018-07-26 13:15 | NUR ---
NURSE NOTES: Patient was discharged per MD orders. Heart monitor was removed and returned to [place]. Belongings are with the patient. Signed belongings list is in the chart. Pt stable at time of discharge
[2018-07-26] MEDS ORDERED: Amoxicillin 250mg/5ml susp 150ml ONE (13:49)
--- NOTE | 2018-07-26 15:33 | Diagnostic Imaging Report ---
Indications: Dysphagia Technique: Patient ingested multiple substances under the supervision of speech pathology. Video fluoroscopic recording performed. Total fluoroscopy time 122 seconds. Total dose area product 0.06494 mGycm2 Total number of images-10 Comparison: none Findings: There is some early pooling of contrast in the hypopharynx. There is penetration with ingestion of thin liquid barium no alfonso aspiration. With nectar thick liquid barium, no evidence of aspiration or penetration. No significant delayed pooling. Other than the early pooling, no significant abnormality seen with barium puree or masticated solid Impression: Penetration of thin liquid barium. Negative for aspiration Please refer to speech pathology report for more detailed analysis
--- NOTE | 2018-07-28 12:54 | Discharge Summary ---
Discharge Summary Discharge Summary _ DATE OF ADMISSION: 07/20/2018 DATE OF DISCHARGE: 07/26/2018 DISCHARGED BY: Dr Sandy REASON FOR ADMISSION: 68 years old female with past medical history of hypertension, history of alcohol abuse, brought by her son due to altered mental status and possible stroke. Last time she was seen normal was a week ago. Per son, four days ago he got a call from the banker, who stated that patient was acting abnormal and was not making sense when she was talking. Patient son was thinking that patient may be drunk. However, he got a call from her prior to arrival to ED, and on the phone she did not make any sense. He rushed over and transferred her to emergency room for evaluation. Patient by herself was a poor historian because her speech was very broken. It appeared that symptoms started few days ago. Patient had no focal deficit. Patient had a history of frequent falls. She denied any trauma. No nausea no vomiting. No fever no chills. No chest pain. No shortness of breath. Upon evaluation blood pressure was elevated 165/120 , and patient was tachycardic . CT of the head demonstrated subacute left temporal and parietal infarct in the left middle cerebral artery branch distribution, which resulted in mild local mass-effect. Doubt but could not exclude some petechiae peripheral hemorrhage. Old right occipital infarct. No acute intracranial bleeding elsewhere. Chest x-ray demonstrated no acute cardiopulmonary pathology. Laboratory workup revealed mild leukocytosis WBC 11, stable hemoglobin and hematocrit. Potassium 2.4, other electrolytes stable. Stable renal parameters. Glucose 130. AST 70 , ALT 52. Albumin 4.0. Aspirin was hold because of questionable petechiae hemorrhage in the region of the CVA. Patient was outside of the frame for TPA. Patient was admitted to monitored floor for further management. CONSULTANTS: neurologist Dr. Goodrich ID specialist Dr. Marie serging machine operator Dr. Seth tar boiler/oncologist Dr. Ludwig [facility] COURSE: Patient admitted to monitored floor. Neurology consult was requested. 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 Per neurologist , it usually appears from cardiac or aortic source, rather than the middle cerebral artery stenosis or internal carotid artery . Patient started on antiplatelet therapy with aspirin and Plavix. Lipid panel was stable. B12, folate, TSH - all within normal limits. Patient initially received folate and thiamine due to history of alcohol abuse. Echocardiogram revealed preserved ejection fraction 55-60% with no evidence of wall motion abnormality. Mild left ventricular hypertrophy. Right ventricular systolic pressure of 16. Venous duplex bilateral upper extremity bilateral lower extremity revealed no evidence of acute DVT. Head and neck CT and CTA of the neck revealed high-grade stenosis versus occlusion of the left M2 posterior trunk with evidence of diminished filling of the sylvian vessels distally, likely related to subacute infarct seen in this territory. 50- 80% diameter stenosis of the left internal carotid artery at the level of the proximal carotid siphon. Diffusely small caliber left anterior cerebral artery. Uncertain as to whether this is congenital, acquired, or due to diminished inflow. Borderline significant focal stenosis of the mid basilar artery. No evidence of significant extracranial cerebral vascular insufficiency. Subacute left temporal and parietal opercular infarct, also previously described , nonhemorrhagic. Very slight peripheral enhancement on the delayed phase images , may indicate early so-called luxury perfusion Significant 50-80% stenosis of the left internal carotid artery was likely the cause of stroke, as per neurologist. Patient started to work with physical and speech therapists. Fall precaution maintained. Video swallow evaluation revealed penetration of thin liquids, but was negative for aspiration. Diet provided as per speech therapist recommendation : regular with thin liquids with general aspiration precaution Speech therapist recommended speech-language cognition evaluation and treatment. Urine culture revealed E. coli. Patient started on antibiotic for urinary tract infection. Potassium was replaced. Blood pressure was managed with the calcium channel florian and hydralazine on as needed basis with slow decrease in blood pressure as recommended by neurologist. Blood pressure stabilized.. Bowel regimen instituted. Anxiolytic provided as needed. Patient initially was given folate and thiamine. Cement Paver followed. Renal parameters and electrolytes were closely monitored, electrolytes corrected as needed, and nephrotoxins were avoided. Potassium and magnesium were replaced. Hemoglobin A1c 5.5. Noted initially hypercalcemia, which resolved. PTH still pending. Neurology closely follow. 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 She could not do one step commands above midline and raising her right arm to command and left arm to command. Neurologist recommend placement to halfway facility with extensive rehabilitation . Placement was arranged to [facility] . Son was in agreement with discharge plan. FINAL DIAGNOSES: CVA Hypertension with initial hypertensive urgency-resolved Significant left carotid stenosis E coli UTI History of alcohol abuse History of old CVA Hypercalcemia-resolved DISCHARGE MEDICATIONS: See Medication Reconciliation list. DISCHARGE INSTRUCTIONS: Patient was discharged to the halfway facility. Follow up with medical doctor at the facility. I have been assigned to dictate discharge summary for this account. I was not involved in the patient's management. Ira uBrch NP Jul 28, 2018 12:54
--- NOTE | 2018-07-28 23:32 | Diagnostic Imaging Report ---
APPROVED REPORT [facility] Code: [id number] Doppler Spectral Velocity Analysis RightLeft arteries. The Doppler spectral flow analysis indicates the degree of stenosis is mild (30%) in the common carotid artery, minimal (10%) in the internal carotid artery, and external carotid artery. VERTEBRAL- The vertebral artery is patent, without evidence of stenosis or steal. arteries. The Doppler spectral flow analysis indicates the degree of stenosis is minimal (20%) in the common carotid artery, mild (30%) in the internal carotid artery, and external carotid artery. VERTEBRAL- The vertebral artery is patent, without evidence of stenosis or steal.
== END 2018-07-26 13:50 | DRG 65 ==
LOC: EMR 21:35 → 2W 22:36 → EDBEDREQ 22:45 → 2E 07-21 06:05
DX: I63.9 Cerebral infarction, unspecified (principal); N39.0 Urinary tract infection, site not specified; F10.10 Alcohol abuse, uncomplicated; E87.6 Hypokalemia; I10 Essential (primary) hypertension; I16.0 Hypertensive urgency; Z86.73 Personal history of transient ischemic attack (TIA), and cerebral infarction without residual deficits; I65.22 Occlusion and stenosis of left carotid artery; E83.52 Hypercalcemia; J44.9 Chronic obstructive pulmonary disease, unspecified; F17.200 Nicotine dependence, unspecified, uncomplicated; Z91.14 Patient's other noncompliance with medication regimen; K21.9 Gastro-esophageal reflux disease without esophagitis
CPT/HCPCS: 36415; 70450; 70496; 70498; 71045; 74230; 80053; 80061; 81001; 82607; 82746; 82962; 83036; 83735; 83970; 84100; 84165; 84443; 84550; 85025; 85610; 85730; 86140; 87086; 87181; 93005; 93306; 93880; 93970; 96365; 99285; J8499